=== PATIENT | male | born 1940 | race Caucasian/White ===

== ENCOUNTER 2017-02-04 15:14 | Emergency (ER) | payer MEDICARE, BC ==
--- NOTE | 2017-02-04 15:58 | UC ---
Respiratory Complaint HPI - HPI Summary HPI Summary: 77 year old male presents with complains of cough and chest congestion. - History of Current Complaint Stated Complaint: COUGH,IRAIDA Time Seen by Provider: 02/04/17 15:58 Hx Obtained From: Patient Onset/Duration: Sudden Onset Severity Initially: Moderate Severity Currently: Moderate Character: Cough: Productive - Allergies/Home Medications Allergies/Adverse Reactions: Allergies Allergy/AdvReac Type Severity Reaction Status Date / Time Penicillins Allergy Severe Rash Verified 02/04/17 16:05 PMH/Surg Hx/FS Hx/Imm Hx Previously Healthy: Yes - Surgical History Surgical History: Yes Surgery Procedure, Year, and Place: 1987- knee surgery. 2005- prostate cancer surgery. hydrocele - Social History Alcohol Use: Rare Substance Use Type: None Smoking Status (MU): Former Smoker When Did the Patient Quit Smoking/Using Tobacco: 48 YRS AGO - Immunization History Most Recent Influenza Vaccination: Current for Review of Systems Constitutional: Negative Skin: Negative Eyes: Negative ENT: Sore Throat, Nasal Discharge, Sinus Congestion, Sinus Pain/Tenderness Respiratory: Shortness Of Breath, Cough Cardiovascular: Negative Gastrointestinal: Negative Genitourinary: Negative Motor: Negative Neurovascular: Negative Musculoskeletal: Negative Neurological: Negative Psychological: Negative All Other Systems Reviewed And Are Negative: Yes Physical Exam Triage Information Reviewed: Yes Vital Signs Reviewed: Yes Eye Exam: Normal ENT: Positive: Nasal congestion, Nasal drainage, Sinus tenderness Dental Exam: Normal Neck exam: Normal Neck: Positive: 1 Respiratory Exam: Normal Respiratory: Positive: Respiratory distress Cardiovascular Exam: Normal Abdominal Exam: Normal Musculoskeletal Exam: Normal Neurological Exam: Normal Psychological Exam: Normal Skin Exam: Normal Respiratory Course/Dx - Differential Dx/Diagnosis Provider Diagnoses: allergic rhinitis. cough Discharge - Discharge Plan Condition: Stable Disposition: HOME Prescriptions: Azithromyxin NINO (NF) [Z-Nino (Zithromax) 250 mg tabs #6] 2 tab PO .TODAY, THEN 1 DAILY #6 tab Guaifenesin-Codeine [Cheratussin AC] 1 teasp PO BEDTIME PRN #120 ml MDD 5 ML PRN Reason: Cough LoraTADine TAB(NF) [Claritin 10 MG TAB(NF)] 10 mg PO DAILY #30 tab Patient Education Materials: Allergic Rhinitis (ED) Referrals: Mir Patel DO [Primary Care Provider] -
[2017-02-04 16:05] VITALS: BP 121/67
== END 2017-02-04 16:20 | disposition home or self-care (01) ==
LOC: UCCORT 15:14
DX: J30.9 Allergic rhinitis, unspecified (principal); R05 Cough; Z87.891 Personal history of nicotine dependence
CPT/HCPCS: 99212; G0463

== ENCOUNTER 2017-03-10 15:22 | Emergency (ER) | payer MEDICARE, BC ==
[2017-03-10 15:53] VITALS: BP 141/75
--- OUTSIDE RECORDS SUMMARY | 2017-03-10 15:53 | XMS REPORT ---
:1940 External Reference #:[id number] Author Organization [facility] Address [address] [place] [id number] Phone [phone] Care Team Providers Name Role Phone Mir Patel D.O. 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 Primary Care Physician Unavailable Payers Type Date Identification Numbers Payment Provider Subscriber Medicare Primary Effective: Policy Number: Medicare Juan Carlos Delcid 2012 [id number] PayID: [id number] [address] [place] [address] Medigap Part B Effective: 2011 Policy Number: [facility] Juan Carlos Delcid [id number] PayID: [id number] [address] [address] [place] [address] Medigap Part B Effective: 2009 Policy Number: [facility] ALEX Delcid [id number] Expires: 2011 PayID: [id number] [address] [address] [place] [address] Problems Date Description Provider Status Onset: 06/05/2011 Microscopic hematuria Lorena Carrillo M.D. Active Onset: 06/05/2011 Malignant tumor of prostate Leonarda Rios NP/PA Active Onset: 06/05/2011 [place] hematuria Leonarda Rios NP/PA Active Onset: 06/05/2011 Luis Alfredo Watson M.D. 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 Cigarette Use 02/24/2016 Former Cigarette Smoker quit 1968 ETOH Use Occasionally consumes wine 1-2 glasses a month Allergies, Adverse Reactions, Alerts Date Description Reaction Status Severity Comments 07/03/2010 Penicillin Urticaria active Medications Medication Date Status Form Strength Qnty SIG Indications Ordering Provider Aspirin Low Dose Active Tablets 81mg daily Unknown 0 Pravastatin Active Tablets 20mg Unknown Sodium 0 No Active Hx Unknown Medications 2 - 4 Simvastatin Hx Tablets 20mg Unknown 0 - 8 Vital Signs Date Vital Result Comment 03/08/2017 Height 70 inches 5'10" Weight 185.00 lb Weight in kg's 83.916 BMI (Body Mass Index) 26.5 kg/m2 BP Systolic 176 mmHg BP Diastolic 100 mmHg Heart Rate 65 /min 08/31/2016 Height 70 inches 5'10" Weight 185.00 lb Weight in kg's 83.916 BMI (Body Mass Index) 26.5 kg/m2 BP Systolic 158 mmHg BP Diastolic 95 mmHg Heart Rate 60 /min Respiratory Rate 18 /min Body Temperature 97.7 F 09/02/2015 Height 70 inches 5'10" Weight 174.00 lb Weight in kg's 78.926 BMI (Body Mass Index) 25.0 kg/m2 BP Systolic 104 mmHg right wrist audio BP Diastolic 71 mmHg right wrist audio Heart Rate 81 /min Body Temperature 98.1 F 05/17/2014 Height 70 inches 5'10" Weight 191.00 lb Weight in kg's 86.638 BMI (Body Mass Index) 27.4 kg/m2 BP Systolic 132 mmHg left arm manual cuff BP Diastolic 84 mmHg left arm manual cuff Body Temperature 97.6 F 06/01/2013 Height 70 inches 5'10" Weight 193.00 lb Weight in kg's 87.545 BMI (Body Mass Index) 27.7 kg/m2 BP Systolic 138 mmHg left wrist audio BP Diastolic 62 mmHg left wrist audio Heart Rate 70 /min Body Temperature 97.5 F 06/09/2012 Height 71 inches 5'11" Weight 195.00 lb Weight in kg's 88.452 BMI (Body Mass Index) 27.2 kg/m2 BP Systolic 161 mmHg right BP Diastolic 81 mmHg right Heart Rate 78 /min Body Temperature 98.4 F 06/11/2011 Height 70 inches 5'10" Weight 193.00 lb Weight in kg's 87.545 BMI (Body Mass Index) 27.7 kg/m2 BP Systolic 132 mmHg left wrist BP Diastolic 78 mmHg left wrist Heart Rate 68 /min Body Temperature 97.5 F 12/19/2010 BP Systolic 144 mmHg right wrist BP Diastolic 83 mmHg right wrist Heart Rate 73 /min Body Temperature 98.0 F 09/24/2010 BP Systolic 152 mmHg left wrist BP Diastolic 91 mmHg left wrist Heart Rate 64 /min Body Temperature 98.2 F 09/10/2010 Body Temperature 98.1 F 07/29/2010 BP Systolic 156 mmHg BP Diastolic 86 mmHg Heart Rate 72 /min Body Temperature 97.6 F Results Test Date Test Result H/L Range Note Laboratory test finding 03/08/2017 Urine Cytology <pending> 230 Ua Routine 03/08/2017 Ua Glucose Negative Ua Protein Negative Ua Nitrite Negative Ua Leuko Negative Ua Blood 1+ Ua Color Yellow Ua Ketones Negative Ua Clarity Clear Ua Specific [place] 1.025 1.003-1.030 Ua PH 5.5 5.0-7.5 Ua Bilirubin Negative Ua Urobilinogen 0.2 E.U./dL 0.0-1.0 Laboratory test finding 03/01/2017 Total Psa Only <0.04 ng/mL 0.00- 4.00 Laboratory test finding 08/26/2016 Total Psa Only <0.04 ng/mL 0.000- 4.000 230 Ua Routine 02/24/2016 Ua Glucose Negative Ua Protein Negative Ua Nitrite Negative Ua Leuko Negative Ua Blood Trace-lysed Ua Color yellow Ua Ketones Negative Ua Clarity clear Ua Specifici [place] >=1.030 1.003-1.030 Ua PH 5.5 5.0-7.5 Ua Bilirubin Negative Ua Urobilinogen 0.2 E.U./dL 0.0-1.0 Laboratory test finding 10/28/2015 Total Psa Only <0.04 ng/mL 0.00- 4.00 Testosterone 431.73 ng/dL 300.00-1000.00 230 Ua Routine 09/02/2015 Ua Glucose Negative Ua Protein Negative Ua Nitrite Negative Ua Leuko Negative Ua Blood 1+ Ua Color yellow Ua Ketones Negative Ua Clarity clear Ua Specifici [place] 1.025 1.003-1.030 Ua PH 5.0 5.0-7.5 Ua Bilirubin Negative Ua Urobilinogen 0.2 E.U./dL 0.0-1.0 230 Ua Routine 05/02/2015 Ua Glucose Negative Ua Protein Negative Ua Nitrite Negative Ua Leuko Negative Ua Blood Trace-intact Ua Color yellow Ua Ketones Negative Ua Clarity clear Ua Specifici [place] 1.025 1.003-1.030 Ua PH 5.5 5.0-7.5 Ua Bilirubin Negative Ua Urobilinogen 0.2 E.U./dL 0.0-1.0 Urine Microscopy 05/02/2015 Urine WBC NEG /HPF 0 - 5 Urine RBC 0-2 /HPF 0-2 Bacteria NEG /HPF Neg Crystals NEG /HPF Neg Epithelial Cells NEG /HPF Neg Sperm NEG /HPF Neg Yeast NEG /HPF Neg Laboratory test finding 04/26/2015 Total Psa Only <0.04 ng/mL 0.00- 4.00 230 Ua Routine 03/25/2015 Ua Glucose Negative Ua Protein Negative Ua Nitrite Negative Ua Leuko Negative Ua Blood Negative Ua Color yellow Ua Ketones Negative Ua Clarity clear Ua Specific [place] >=1.030 1.003-1.030 Ua PH 5.5 5.0-7.5 Ua Bilirubin Negative Ua Urobilinogen 0.2 E.U./dL 0.0-1.0 230 Ua Routine 01/22/2015 Ua Glucose Negative Ua Protein Negative Ua Nitrite Negative Ua Leuko Negative Ua Blood Trace-intact Ua Color yellow Ua Ketones Negative Ua Clarity clear Ua Specific [place] 1.025 1.003-1.030 Ua PH 5.5 5.0-7.5 Ua Bilirubin Negative Ua Urobilinogen 0.2 E.U./dL 0.0-1.0 Laboratory test finding 01/22/2015 Beta HCG Tumor Marker <1 0-3 CBC W/O Diff 01/22/2015 Hemoglobin 14.9 12.8-17 Hematocrit 44.6 38-48 Laboratory test finding 01/22/2015 Bill Fetoprotein Tumor Marker 2.2 0.0- 8.3 Urine Microscopy 11/13/2014 Urine WBC NEG /HPF 0 - 5 Urine RBC 0-2 /HPF 0-2 Bacteria NEG /HPF Neg Crystals NEG /HPF Neg Epithelial Cells RARE /HPF Neg Sperm NEG /HPF Neg Yeast NEG /HPF Neg #Ua Routine 11/13/2014 Ua Glucose Negative Ua Protein Negative Ua Nitrite Negative Ua Leuko Negative Ua Blood Negative Ua Color yellow Ua Ketones Negative Ua Clarity clear Ua Specific [place] 1.015 1.003-1.030 Ua PH 6.0 5.0-7.5 Ua Bilirubin Negative Ua Urobilinogen 0.2 E.U./dL 0.0-1.0 Laboratory test finding 11/07/2014 Total Psa Only <0.04 ng/mL 0.00- 4.00 Testosterone 443.41 ng/dL 300.00-1000.00 Urine Microscopy 05/17/2014 Urine WBC 0-2 /HPF 0 - 5 Urine RBC 0-2 /HPF 0-2 Bacteria RARE /HPF Neg Crystals AMORPH 1+ /HPF Neg Epithelial Cells 1+ /HPF Neg Sperm NEG /HPF Neg Yeast NEG /HPF Neg #Ua Routine 05/14/2014 Ua Glucose Negative Ua Protein Negative Ua Nitrite Negative Ua Leuko Negative Ua Blood 1+ Ua Color yellow Ua Ketones Negative Ua Clarity clear Ua Specific [place] 1.025 1.003-1.030 Ua PH 5.5 5.0-7.5 Ua Bilirubin Negative Ua Urobilinogen 0.2 E.U./dL 0.0-1.0 Laboratory test finding 05/14/2014 Total Psa Only <0.04 ng/mL 0.00- 4.00 Urine Microscopy 11/16/2013 Urine WBC 0-2 /HPF 0 - 5 Urine RBC 0-2 /HPF 0-2 Bacteria 2+ /HPF Neg Crystals amorph, 4+ /HPF Neg Epithelial Cells RARE /HPF Neg Sperm NEG /HPF Neg Yeast NEG /HPF Neg #Ua Routine 11/16/2013 Ua Glucose Negative Ua Protein Negative Ua Nitrite Negative Ua Leuko Negative Ua Blood Trace-lysed Ua Color yellow Ua Ketones Negative Ua Clarity clear Ua Specific [place] 1.025 1.003-1.030 Ua PH 6.0 5.0-7.5 Ua Bilirubin Negative Ua Urobilinogen 0.2 E.U./dL 0.0-1.0 Laboratory test finding 11/13/2013 Total Psa Only <0.04 ng/mL 0.00- 4.00 Testosterone 393.30 ng/dL 300.00-1000.00 Urine Microscopic 05/29/2013 Urine WBC 0-2 /HPF 0 - 5 Urine RBC 0-2 /HPF 0-5 Bacteria RARE /HPF Neg Crystals AMORPH 3+ /HPF Neg Epithelial Cells NEG /HPF Neg Sperm NEG /HPF Neg Yeast NEG /HPF Neg #Ua Routine 05/29/2013 Ua Glucose Negative Ua Protein Negative Ua Nitrite Negative Ua Leuko Negative Ua Blood 1+ Ua Color GOLD Ua Ketones Negative Ua Clarity CLEAR Ua Specific [place] 1.025 1.003-1.030 Ua PH 5.5 5.0-7.5 Ua Bilirubin Negative Ua Urobilinogen 0.2 E.U./dL 0.2-1 Laboratory test finding 05/29/2013 Total Psa Only <0.04 ng/mL 0.00- 4.00 Laboratory test finding 12/08/2012 Total PSA <0.04 ng/mL 0.00-4.00 Testosterone 378.43 ng/dL 300.00-1000.00 #Ua Routine 06/09/2012 Ua Glucose Negative Ua Protein Negative Ua Nitrite Negative Ua Leuko Negative Ua Blood Trace-lysed Ua Color Not Entered Ua Ketones Negative Ua Clarity Not Entered Ua Specific [place] >=1.030 Ua PH 5.5 Ua Bilirubin Negative Ua Urobilinogen 0.2 E.U./dL Laboratory test finding 06/09/2012 PSA Total Serum 0.01 0.0-4.0 Laboratory test finding 12/15/2011 Urine Cytology Void X (Amp/CBL) #Ua Routine 12/15/2011 Ua Glucose Negative Ua Protein Negative Ua Nitrite Negative Ua Leuko Negative Ua Blood Trace-lysed Ua Color Not Entered Ua Ketones Negative Ua Clarity Not Entered Ua Specific [place] 1.020 Ua PH 5.5 Ua Bilirubin Negative Ua Urobilinogen 0.2 E.U./dL #Ua Routine 12/10/2011 Ua Glucose Negative Ua Protein Negative Ua Nitrite Negative Ua Leuko Negative Ua Blood Trace-lysed Ua Color Not Entered Ua Ketones Negative Ua Clarity Not Entered Ua Specific [place] 1.025 Ua PH 5.5 Ua Bilirubin Negative Ua Urobilinogen 0.2 E.U./dL Laboratory test finding 12/10/2011 Total PSA <0.04 ng/mL 0.00-4.00 Testosterone 254.00 ng/dL 199.00-1586.00 #Ua Routine 06/08/2011 Ua Glucose Negative Ua Protein Negative Ua Nitrite Negative Ua Leuko Negative Ua Blood Negative Ua Color Not Entered Ua Ketones Negative Ua Clarity Not Entered Ua Specific [place] 1.025 Ua PH 5.5 Ua Bilirubin Negative Ua Urobilinogen 0.2 E.U./dL Laboratory test finding 06/08/2011 Total PSA < 0.04 ng/mL 0.00-4.00 Laboratory test finding 12/19/2010 Urine Cytology Void X (Amp/CBL) #Ua Routine 12/19/2010 Ua Glucose Negative Ua Protein Negative Ua Nitrite Negative Ua Leuko Negative Ua Blood 2+ Ua Color Not Entered Ua Ketones Negative Ua Clarity Not Entered Ua Specific [place] 1.025 Ua PH 5.5 Ua Bilirubin Negative Ua Urobilinogen 0.2 E.U./dL Laboratory test finding 12/10/2010 Total PSA < 0.04 ng/mL 0.00-4.00 Testosterone 307.00 ng/dL 225.00-972.00 #Ua Routine 09/24/2010 Ua Glucose Negative Ua Prot/Creat Normal Ua Protein Negative Ua Nitrite Negative Ua Leuko Negative Ua Blood Negative Ua Color Not Entered Ua Ketones Negative Ua Clarity Not Entered Ua Specific [place] 1.020 Ua PH 5.0 Ua Creatinine 200 mg/dL BUN + Creatinine 09/10/2010 BUN - Urea Nitrogen 15 5-23 Creatinine 0.9 0.5-1.4 #Ua Routine 07/29/2010 Ua Glucose Negative Ua Prot/Creat Normal Ua Protein Negative Ua Nitrite Negative Ua Leuko Negative Ua Blood Trace-lysed Ua Color Not Entered Ua Ketones Negative Ua Clarity Not Entered Ua Specific [place] 1.020 Ua PH 5.5 Ua Creatinine 200 mg/dL Laboratory test finding 06/12/2010 Total PSA < 0.04 ng/mL 0.00-4.00 Laboratory test finding 06/04/2010 Total PSA 0.82 ng/mL 0.00-4.00 #Ua Routine 06/04/2010 Ua Glucose Negative Ua Prot/Creat Normal Ua Protein Negative Ua Nitrite Negative Ua Leuko Negative Ua Blood Trace-intact Ua Color Not Entered Ua Ketones Negative Ua Clarity Not Entered Ua Specific [place] 1.025 Ua PH 5.5 Ua Creatinine 300 mg/dL Laboratory test finding 12/02/2009 PSA Total < 0.07 0.07-4.0 Laboratory test finding 06/19/2009 PSA Total < 0.07 0.07-4.0 Laboratory test finding 12/13/2008 PSA Total 0.09 0.07-4.0 Laboratory test finding 06/18/2008 PSA Total < 0.07 0.07-4.0 Laboratory test finding 12/28/2007 PSA Total < 0.07 0.07-4.0 Laboratory test finding 06/22/2007 PSA Total < 0.07 0.07-4.0 Laboratory test finding 12/13/2006 PSA Total < 0.07 0.07-4.0 Laboratory test finding 06/16/2006 PSA Total < 0.07 0.07-4.0 Laboratory test finding 12/09/2005 PSA Total < 0.07 0.07-4.0 Laboratory test finding 06/17/2005 PSA Total < 0.07 0.07-4.0 Laboratory test finding 06/18/2004 PSA Total 3.56 0-4.0 Laboratory test finding 04/16/2004 PSA Total 5.02 High 0-4.0 Procedures Date CPT Code Description Status 03/01/2017 51964 Genitalia; Ultrasound, Scrotum And Contents - Tech Comp Completed 08/31/2016 08356 Genitalia; Ultrasound, Scrotum And Contents - Tech Comp Completed 02/24/2016 62599 Genitalia; Ultrasound, Scrotum And Contents Completed 09/02/2015 41781 Genitalia; Ultrasound, Scrotum And Contents Completed 03/25/2015 83486 Genitalia; Ultrasound, Scrotum And Contents Completed 01/21/2015 37903 Genitalia; Ultrasound, Scrotum And Contents Completed 12/21/2011 34239 Ultrasound Retro Renal Real Time With Image Limited Completed Global 09/17/2010 38907 Excision Of Hydrocele; Unilateral - Hosp Completed 09/17/2010 91106 Excision Of Spermatocele, W/Wo Epididymectomy - Hosp Completed Encounters Type Date Location Provider CPT E/M Dx Office Visit 03/08/2017 9:00a [facility]Dillan De Paz, 98502 Z85.46 Urology P.A. R31.9 N52.31 N43.42 Office Visit 08/31/2016 10:45a [facility] 80570 Z85.46 R., P.A. N52.31 N43.42 Office Visit 02/24/2016 12:00p [facility] Luis Alfredo Zambrano, [address]39[address] Z85.46 Thierry D40.11 N43.42 N52.31 Office Visit 09/02/2015 1:10p [facility] KenyaLuis Alfredo, 49956 Z85.46 M.D. D40.11 N43.42 N52.31 Office Visit 05/02/2015 2:30p [facility] Leonarda Rios, MANAGER ASSESSMENT/[place] [address] Z85.46 R31.1 K40.21 Office Visit 03/25/2015 12:50p [facility] Luis Alfredo Zambrano, 16225 Z85.46 M.D. K40.21 D40.11 Office Visit 01/22/2015 8:30a [facility] Luis Alfredo Zambrano, 36856 N43.41 M.D. Z85.46 K40.21 D40.11 Office Visit 2015 3:10p [facility] Luis Alfredo Zambrano, 87071 Z85.46 M.D. K40.21 N43.41 Office Visit 11/13/2014 10:10a [facility] Luis Alfredo Zambrano, 98452 Z85.46 M.D. N52.31 R31.1 Office Visit 05/17/2014 9:00a [facility] Leonarda Rios, MANAGER ASSESSMENT/[place] [address] 185 607.84 599.72 Office Visit 11/16/2013 9:30a [facility] Luis Alfredo Zambrano, [address]1465 185 M.D. 607.84 599.72 Office Visit 06/01/2013 10:50a [facility] Luis Alfredo Zambrano, 26662 185 M.D. 607.84 Office Visit 12/13/2012 8:20a [facility] Luis Alfredo Zambrano, 10530 185 M.D. 603.9 607.84 Office Visit 06/14/2012 8:10a [facility] Luis Alfredo Zambrano, [address]14[address] 185 M.D. Office Visit 12/15/2011 8:00a [facility] Luis Alfredo Zambrano, 16851 185 M.D. 599.72 Office Visit 06/11/2011 9:50a [facility] Luis Alfredo Zambrano, 79172 185 M.D. Office Visit 12/19/2010 8:30a [facility] BlancaLeonarda MANAGER ASSESSMENT/[place] [address] 185 599.71 Office Visit 09/10/2010 9:45a [facility] Leonarda Rios, MANAGER [place] [address] 603.9 Office Visit 07/29/2010 8:50a [facility] Luis Alfredo Zambrano, 16862 185 M.D. Office Visit 06/12/2010 8:30a [facility] Luis Alfredo Zambrano, 39120 185 M.D. Plan of Care Future Appointment(s):09/06/2017 9:30 am - Dillan Rodriguez, P.AIrineo at [facility] Haveoce3708/31/2017 9:15 am - Monty Vee at [facility] [id number] - Dillan Rodriguez, P.A.Z85.46 Personal history of malignant neoplasm of prostateNew Labs:PSA TotalComments:Today's PSA is undetectable less than 0.04. He has a son 42 and 50 getting prostate cancer screening. Call for his [id number] Hematuria, unspecifiedComments:Asymptomatic microscopic hematuria. It's been over 4 years since the last cytology in one is sent today with his history of [id number] Erectile dysfunction following radical prostatectomyComments:Reviewed penile rehabilitation use the vacuum erection device. He is currently doing rehabilitation sessions. We reviewed the use of PDE 5 inhibitors in conjunction with his rehabilitation. Sildenafil 20 mg as called the pharmacy. He has no contra indications to its use.N43.42 Spermatocele of epididymis, multipleComments:Stable and not bothersome. Reviewed scrotal elevation and nonsteroidal anti-inflammatory use for mild symptoms. Should he have any persistent or worsening of his symptoms of it starts feeling hot or tender he should contact the office f~B_~U_or a short course of antibiotics~u_~b_
--- OUTSIDE RECORDS SUMMARY | 2017-03-10 15:54 | XMS REPORT ---
:1940 External Reference #:[id number] Author Organization [facility] Address [address] [address] Phone [phone] Care Team Providers Name Role Phone Mir Patel DO Care Team Information [employer] Unavailable Payers Type Date Identification Numbers Payment Provider Subscriber Medicare Primary Effective: Policy Number: Medicare Juan Carlos Delcid 2012 [id number] PayID: [id number] [address] [place] [address] [facility] Part B Effective: Policy Number: BCBS Commercial Juan Carlos Delcid 2012 [id number] PayID: [id number] [address] [address] [place] [address] Problems Date Description Provider Status Onset: 05/25/2013 Benign essential hypertension Mir Patel DO Active Onset: 07/05/2007 Mixed hyperlipidemia Michael Goss MD Active Onset: 12/18/2005 Acute pancreatitis Michael Goss MD Active Onset: 03/10/2005 Elevated blood-pressure reading without Michael Goss MD Active diagnosis of hypertension Onset: 12/17/2004 History of malignant neoplasm of prostate Michael Goss MD Active Onset: 06/04/2014 Pure hypercholesterolemia Active Onset: 06/05/2014 Type 2 diabetes mellitus Mir Patel DO Active Social History Type Date Description Comments Marital Status Lives With 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 Allergies, Adverse Reactions, Alerts Date Description Reaction Status Severity Comments 12/17/2004 Amoxicillin active 02/12/2017 Penicillin active Medications Medication Date Status Form Strength Qnty SIG Indications Ordering Provider Pravastatin 02/17/19 Active Tablets 20mg 30tabs 1 po Patel, Sodium 14 qd Mir, DO Aspirin Adult Active Tablets DR 81mg 1 po Unknown Low Strength 00 qd Immunizations CPT Code Status Date Vaccine Lot # [id number] Given 12/21/2016 Influenza Vac, 3 Yrs & Older, Quadrivalent, Split, [place] Use [address] Given 08/13/2016 Prevnar 13 Pneumococal Conjugate Vaccine [id number] Given 11/23/2014 Fluzone Highdose Age 65 And Over Preservative & Antibiotic Free 35035 Given 10/31/2012 Afluria Or Fluvirin Flu Vac Intramuscular 13741 Given 07/05/2008 Pneumococcal 23 Immunization Adult Or Immunosuppressed Patient 36341 Given 12/17/2004 Afluria Or Fluvirin Flu Vac Intramuscular 03142 Given 09/08/2000 Immunization Td 7 Yrs Or Older Vital Signs Date Vital Result Comment 02/12/2017 Body Temperature 96.9 F Weight 189.00 lb Heart Rate 108 /min BP Systolic 142 mmHg BP Diastolic 80 mmHg Respiratory Rate 14 /min Height 69.5 inches 5'9.50" (01/2016) O2 % BldC Oximetry 98 % Room Air BMI (Body Mass Index) 27.5 kg/m2 08/13/2016 Weight 185.00 lb Heart Rate 66 /min BP Systolic 160 mmHg BP Diastolic 90 mmHg Respiratory Rate 18 /min Height 69.5 inches 5'9.50" (01/2016) BMI (Body Mass Index) 26.9 kg/m2 02/05/2016 Weight 187.00 lb Heart Rate 72 /min BP Systolic 148 mmHg BP Diastolic 88 mmHg BP Systolic Recheck 150 mmHg BP Diastolic Recheck 90 mmHg Respiratory Rate 18 /min Height 69.5 inches 5'9.50" (01/2016) BMI (Body Mass Index) 27.2 kg/m2 08/01/2015 Weight 175.00 lb Heart Rate 68 /min BP Systolic 140 mmHg BP Diastolic 80 mmHg Respiratory Rate 18 /min Height 69.5 inches 5'9.50" BMI (Body Mass Index) 25.5 kg/m2 01/18/2015 Weight 185.00 lb Heart Rate 60 /min BP Systolic 140 mmHg BP Diastolic 80 mmHg Respiratory Rate 18 /min Height 69.5 inches 5'9.50" BMI (Body Mass Index) 26.9 kg/m2 09/12/2014 Weight 187.00 lb Heart Rate 64 /min BP Systolic 138 mmHg BP Diastolic 76 mmHg Respiratory Rate 18 /min Height 69.5 inches 5'9.50" BMI (Body Mass Index) 27.2 kg/m2 06/05/2014 Weight 193.00 lb Heart Rate 72 /min BP Systolic 150 mmHg BP Diastolic 80 mmHg Respiratory Rate 18 /min Height 69.5 inches 5'9.50" BMI (Body Mass Index) 28.1 kg/m2 11/27/2013 BP Systolic 140 mmHg BP Diastolic 86 mmHg 11/27/2013 Weight 195.00 lb Heart Rate 70 /min BP Systolic 148 mmHg BP Diastolic 88 mmHg Respiratory Rate 18 /min Height 69.5 inches 5'9.50" (10/2012) 05/25/2013 Weight 195.00 lb Heart Rate 72 /min BP Systolic 142 mmHg BP Diastolic 80 mmHg Respiratory Rate 18 /min Height 69.5 inches 5'9.50" (10/2012) 02/17/2013 Weight 194.00 lb Heart Rate 62 /min BP Systolic 142 mmHg BP Diastolic 84 mmHg Respiratory Rate 18 /min Height 69.5 inches 5'9.50" (10/2012) 10/31/2012 BP Systolic 156 mmHg BP Diastolic 94 mmHg 10/31/2012 Weight 194.00 lb Heart Rate 72 /min BP Systolic 158 mmHg BP Diastolic 90 mmHg Respiratory Rate 18 /min Height 69.5 inches 5'9.50" (10/2012) 08/25/2011 Weight 195.00 lb Heart Rate 80 /min BP Systolic 132 mmHg BP Diastolic 90 mmHg Respiratory Rate 20 /min Height 69 inches 5'9" 08/25/2010 Weight 195.00 lb Heart Rate 72 /min BP Systolic 142 mmHg BP Diastolic 82 mmHg Respiratory Rate 20 /min Height 69 inches 5'9" 06/16/2010 Weight 196.00 lb Heart Rate 66 /min BP Systolic 130 mmHg BP Diastolic 74 mmHg Height 70 inches 5'10" 05/05/2010 Weight 197.00 lb Heart Rate 60 /min BP Systolic 150 mmHg BP Diastolic 80 mmHg Height 70 inches 5'10" 08/12/2009 Weight 194.00 lb BP Systolic 170 mmHg BP Diastolic 84 mmHg 07/05/2008 Weight 193.00 lb Heart Rate 72 /min BP Systolic 122 mmHg LEFT BP Diastolic 80 mmHg LEFT Respiratory Rate 15 /min 07/05/2007 Weight 188.00 lb Heart Rate 60 /min BP Systolic 130 mmHg BP Diastolic 80 mmHg Height 70 inches 5'10" 03/17/2007 Body Temperature 96.8 F Weight 194.00 lb Up 5 LBS BP Systolic 160 mmHg BP Diastolic 84 mmHg Height 70 inches 5'10" 07/02/2006 Weight 189.00 lb Heart Rate 68 /min BP Systolic 144 mmHg BP Diastolic 80 mmHg Respiratory Rate 18 /min Height 70 inches 5'10" 06/26/2006 Body Temperature 97.3 F Weight 188.00 lb Heart Rate 76 /min BP Systolic 140 mmHg BP Diastolic 88 mmHg Respiratory Rate 18 /min Height 70 inches 5'10" 06/03/2006 Body Temperature 97.1 F Weight 192.00 lb Heart Rate 67 /min BP Systolic 146 mmHg BP Diastolic 80 mmHg Respiratory Rate 18 /min Height 70 inches 5'10" 12/18/2005 Weight 182.00 lb Down 9 LBS BP Systolic 120 mmHg BP Diastolic 84 mmHg Height 70 inches 5'10" 08/31/2005 Weight 190.00 lb Heart Rate 69 /min BP Systolic 158 mmHg BP Diastolic 94 mmHg Respiratory Rate 16 /min Height 70 inches 5'10" 08/24/2005 Body Temperature 98.2 F Weight 190.00 lb Heart Rate 68 /min BP Systolic 152 mmHg BP Diastolic 78 mmHg Respiratory Rate 16 /min Height 70 inches 5'10" 03/10/2005 Weight 190.00 lb Heart Rate 56 /min BP Systolic 150 mmHg BP Diastolic 80 mmHg Height 70 inches 5'10" 02/17/2005 Weight 192.00 lb Heart Rate 60 /min BP Systolic 132 mmHg BP Diastolic 80 mmHg Height 70 inches 5'10" 01/01/2005 Weight 190.00 lb Heart Rate 60 /min BP Systolic 144 mmHg BP Diastolic 74 mmHg 12/17/2004 Weight 184.00 lb BP Systolic 140 mmHg BP Diastolic 80 mmHg Results Test Date Test Result H/L Range Note Lipid Treatment 02/05/2017 Cholesterol 121 mg/dL 50-199 Triglycerides 72 mg/dL 30-200 HDL 29 mg/dL 29-71 1 Chol/ HDL Ratio 4.2 ratio 4.0-6.7 VLDL 14 mg/dL 2-29 LDL (Calc) 78 mg/dL 20-99 2 Alt 19 U/L 3-42 Ast 20 U/L 8-42 Hemoglobin A1c 02/05/2017 Hemoglobin A1c 6.6 % High 4.1-5.9 Estimated Average Glucose Calc 143 mg/dL High 71-140 CBC With Auto Diff 02/05/2017 WBC 3.7 K/uL Low 4.1-11.0 RBC 5.01 M/uL 4.60-6.10 Hemoglobin 16.1 gm/dL 13.5-18.0 Hematocrit 46.7 % 41.0-53.0 MCV 93.2 fL 80.0-97.0 MCH 32.2 pg High 27.0-32.0 MCHC 34.6 g/dL 32.0-36.0 RDW 13.4 % 11.5-14.5 PLT Count 186 K/ul 140-400 MPV 9.0 FL 7.1-10.7 Neutrophil 59.2 % 35.0-75.0 Lymphocyte 24.6 % 16.0-52.0 Monocyte 9.9 % 2.0-10.0 Eosinophil 5.6 % High 0.0-5.0 Basophil 0.7 % 0.0-4.0 Abs Neutrophils 2.2 K/uL 2.1-8.0 Abs Lymphocytes 0.9 K/uL 0.8-5.5 Abs Monocytes 0.4 K/uL 0.1-1.0 Abs Eosinophils 0.2 K/uL 0.0-0.5 Abs Basophils 0.0 K/uL 0.0-0.3 Basic (BMP) 02/05/2017 Sodium 141 mmol/L 135-146 3 Potassium 3.9 mmol/L 3.5-5.2 Chloride# 105 mmol/L 97-110 4 Carbon Dioxide 25 mmol/L 24-34 Glucose 131 mg/dL High 70-105 Creatinine 1.1 mg/dL 0.5-1.4 Calcium 9.0 mg/dL 8.5-10.2 Non Ashlyn Egfr >60 >60 5 Ashlyn Egfr >60 >60 6 Anion Gap 11 mmol/L 7-16 7 BUN 21 mg/dL 6-26 Laboratory test finding 02/05/2017 TSH 1.45 uIU/mL 0.35-4.94 Hemoglobin A1c 08/10/2016 Hemoglobin A1c 6.2 % High 4.1-5.9 Estimated Average Glucose Calc 131 71-140 CBC With Auto Diff 08/10/2016 WBC 5.5 K/uL 4.1-11.0 RBC 4.86 M/uL 4.60-6.10 Hemoglobin 15.2 gm/dL 13.5-18.0 Hematocrit 44.8 % 41.0-53.0 MCV 92.1 fL 80.0-97.0 MCH 31.3 pg 27.0-32.0 MCHC 34.0 g/dL 32.0-36.0 RDW 13.1 % 11.5-14.5 PLT Count 213 K/ul 140-400 Neutrophil 62.9 % 35.0-75.0 Lymphocyte 24.3 % 16.0-52.0 Monocyte 9.4 % 2.0-10.0 Eosinophil 2.7 % 0.0-5.0 Basophil 0.7 % 0.0-4.0 Abs Neutrophils 3.5 K/uL 2.1-8.0 Abs Lymphocytes 1.3 K/uL 0.8-5.5 Abs Monocytes 0.5 K/uL 0.1-1.0 Abs Eosinophils 0.1 K/uL 0.0-0.5 Abs Basophils 0.0 K/uL 0.0-0.3 Basic (BMP) 08/10/2016 Sodium 142 mmol/L 135-146 8 Potassium 4.0 mmol/L 3.5-5.2 Chloride# 107 mmol/L 97-110 9 Carbon Dioxide 26 mmol/L 24-34 Glucose 127 mg/dL High 70-105 BUN 20 mg/dL 6- Creatinine 1.0 mg/dL 0.5-1.4 Calcium 9.3 mg/dL 8.5-10.2 Non Ashlyn Egfr >60 >60 10 Ashlyn Egfr >60 >60 11 Anion Gap 13 mmol/L 7-16 12 Laboratory test finding 08/10/2016 TSH 1.18 uIU/mL 0.35-4.94 Lipid Treatment 08/10/2016 Cholesterol 143 mg/dL 50-199 Triglycerides 96 mg/dL 30-200 HDL 34 mg/dL 29-71 13 Chol/ HDL Ratio 4.2 ratio 4.0-6.7 VLDL 19 mg/dL 2-29 LDL (Calc) 89 mg/dL 20-99 14 Alt 13 U/L 3-42 Ast 14 U/L 8- Lipid Treatment 01/31/2016 Cholesterol 137 mg/dL 50-199 Triglycerides 103 mg/dL 30-200 HDL 34 mg/dL 29-71 15 Chol/ HDL Ratio 4.0 ratio 4.0-6.7 VLDL 21 mg/dL 2-29 LDL (Calc) 82 mg/dL 20-99 16 Alt 14 U/L 3-42 Ast 16 U/L 8- Laboratory test finding 01/31/2016 Hemoglobin A1c 6.4 % High 4.1-5.9 CBC With Auto Diff 01/31/2016 WBC 5.5 K/uL 4.1-11.0 RBC 4.91 M/uL 4.60-6.10 Hemoglobin 15.4 gm/dL 13.5-18.0 Hematocrit 45.7 % 41.0-53.0 MCV 93.1 fL 80.0-97.0 MCH 31.3 pg 27.0-32.0 MCHC 33.7 g/dL 32.0-36.0 RDW 13.3 % 11.5-14.5 PLT Count 217 K/ul 140-400 Neutrophil 63.2 % 35.0-75.0 Lymphocyte 25.2 % 16.0-52.0 Monocyte 8.1 % 2.0-10.0 Eosinophil 2.6 % 0.0-5.0 Basophil 0.9 % 0.0-4.0 Abs Neutrophils 3.5 K/uL 2.1-8.0 Abs Lymphocytes 1.4 K/uL 0.8-5.5 Abs Monocytes 0.4 K/uL 0.1-1.0 Abs Eosinophils 0.1 K/uL 0.0-0.5 Abs Basophils 0.1 K/uL 0.0-0.3 Basic (BMP) 01/31/2016 Sodium 140 mmol/L 134-142 Potassium 4.3 mmol/L 3.5-5.2 Chloride 105 mmol/L 97-109 Carbon Dioxide 29 mmol/L 24-34 Glucose 135 mg/dL High 70-105 BUN 15 mg/dL 6-26 Creatinine 0.9 mg/dL 0.5-1.4 Calcium 9.3 mg/dL 8.5-10.2 Anion Gap 10 mmol/L 6-14 Non Ashlyn Egfr >60 >60 17 Ashlyn Egfr >60 >60 18 Laboratory test finding 01/31/2016 TSH 1.15 uIU/mL 0.35-4.94 Laboratory test finding 07/25/2015 Hemoglobin A1c 5.9 % 4.1-5.9 CBC With Auto Diff 07/25/2015 WBC 6.4 K/uL 4.1-11.0 RBC 4.47 M/uL Low 4.60-6.10 Hemoglobin 13.7 gm/dL 13.5-18.0 Hematocrit 40.5 % Low 41.0-53.0 MCV 90.5 fL 80.0-97.0 MCH 30.7 pg 27.0-32.0 MCHC 33.9 g/dL 32.0-36.0 RDW 13.6 % 11.5-14.5 PLT Count 287 K/ul 140-400 Basic (BMP) 07/25/2015 Sodium 137 mmol/L 134-142 Potassium 3.9 mmol/L 3.5-5.2 Chloride 105 mmol/L 97-109 Carbon Dioxide 24 mmol/L 24-34 Glucose 127 mg/dL High 70-105 BUN 19 mg/dL 6- Creatinine 0.9 mg/dL 0.5-1.4 Calcium 9.5 mg/dL 8.5-10.2 Anion Gap 12 mmol/L 6-14 Non Ashlyn Egfr >60 >60 19 Ashlyn Egfr >60 >60 20 Laboratory test finding 07/25/2015 TSH 1.37 uIU/mL 0.35-4.94 Lipid Treatment 07/25/2015 Cholesterol 136 mg/dL 50-199 Triglycerides 111 mg/dL 30-200 HDL 32 mg/dL 21 Chol/ HDL Ratio 4.3 ratio 4.0-6.7 VLDL 22 mg/dL 2-29 LDL (Calc) 82 mg/dL 20-99 22 Alt 11 U/L 3-42 Ast 11 U/L 8- Lipid Treatment 01/14/2015 Cholesterol 138 mg/dL 50-199 Triglycerides 72 mg/dL 30-200 HDL 39 mg/dL 23 Chol/ HDL Ratio 3.5 ratio Low 4.0-6.7 VLDL 14 mg/dL 2-29 LDL (Calc) 85 mg/dL 20-99 24 Alt 15 U/L 3-42 Ast 14 U/L 8-42 Laboratory test finding 01/14/2015 Hemoglobin A1c 6.4 % High 4.1-5.9 CBC With Auto Diff 01/14/2015 WBC 5.8 K/uL 4.1-11.0 RBC 4.72 M/uL 4.60-6.10 Hemoglobin 15.2 gm/dL 13.5-18.0 Hematocrit 44.8 % 41.0-53.0 MCV 94.8 fL 80.0-97.0 MCH 32.2 pg High 27.0-32.0 MCHC 33.9 g/dL 32.0-36.0 RDW 13.4 % 11.5-14.5 PLT Count 194 K/ul 140-400 Neutrophil 67.8 % 35.0-75.0 Lymphocyte 21.6 % 16.0-52.0 Monocyte 8.4 % 2.0-10.0 Eosinophil 1.6 % 0.0-5.0 Basophil 0.6 % 0.0-4.0 Abs Neutrophils 3.9 K/uL 2.1-8.0 Abs Lymphocytes 1.3 K/uL 0.8-5.5 Abmon 0.5 K/uL 0.1-1.0 Abs Eosinophils 0.1 K/uL 0.0-0.5 Abs Basophils 0.0 K/uL 0.0-0.3 Basic (BMP) 01/14/2015 Sodium 138 mmol/L 134-142 Potassium 4.3 mmol/L 3.5-5.2 Chloride 106 mmol/L 97-109 Carbon Dioxide 27 mmol/L 24-34 Glucose 123 mg/dL High 70-105 BUN 19 mg/dL 6- Creatinine 1.0 mg/dL 0.5-1.4 Calcium 9.4 mg/dL 8.5-10.2 Anion Gap 9 mmol/L 6-14 Non Ashlyn Egfr >60 >60 25 Ashlyn Egfr >60 >60 26 Laboratory test finding 01/14/2015 TSH 0.93 uIU/mL 0.35-4.94 Laboratory test finding 09/05/2014 Microalbumin, Random 6.5 ug/ml 0.0- 20.0 Urine Hemoglobin A1c 6.0 % High 4.1-5.9 Laboratory test finding 06/01/2014 Hemoglobin A1c 6.6 % High 4.1-5.9 Basic (BMP) 06/01/2014 Sodium 138 mmol/L 134-142 Potassium 4.6 mmol/L 3.5-5.2 Chloride 105 mmol/L 97-109 Carbon Dioxide 29 mmol/L 24-34 Glucose 122 mg/dL High 70-105 BUN 14 mg/dL 6-26 Creatinine 0.9 mg/dL 0.5-1.4 Calcium 9.4 mg/dL 8.5-10.2 Anion Gap 9 mmol/L 6-14 Non Ashlyn Egfr >60 >60 27 Ashlyn Egfr >60 >60 28 Lipid Treatment 06/01/2014 Cholesterol 151 mg/dL 50-199 Triglycerides 119 mg/dL 30-200 HDL 31 mg/dL 29-71 29 Chol/ HDL Ratio 4.9 ratio 4.0-6.7 VLDL 24 mg/dL 2-29 LDL (Calc) 96 mg/dL 20-99 30 Alt 17 U/L 3-42 Ast 15 U/L 8-42 Laboratory test finding 11/24/2013 % Baso. 1.0 % 0.0-2.0 % Eos. 2.7 % 0.0-4.0 % Lymph 23 % 20-44 % Hand 9.7 % 2.0-10.0 % Aubrey 64 % 50-70 Absolute Baso. 0.1 K/ul 0.0-0.3 Absolute Eos. 0.2 K/ul 0.0-0.5 Absolute Lymph. 1.4 K/ul 0.8-4.8 Absolute Hand. 0.6 K/ul 0.1-1.0 Absolute Aubrey. 3.87 K/ul 2.05-7.63 Alt 22.0 U/L 21.0-72.0 Ast 18.0 U/L 17.0-59.0 BUN 17.0 mg/dL 9.0-21.0 BUN/Creat Ratio 15.5 ratio 12.0-20.0 Calcium 9.6 mg/dL 8.7-10.5 Chloride 107.0 mmol/L 98.0-107.0 Co2 27.0 mmol/L 22.0-30.0 Creatinine-Serum 1.1 mg/dL 0.8-1.5 Glucose 117.0 mg/dL High 75.0-110.0 HCT 46.7 % 37.0-51.0 HGB 15.8 Gm/dl 12.0-16.0 MCH 31.6 pg 26.0-32.0 MCHC 33.9 g/dL 31.0-36.0 MCV 93.2 Fl 80.0-97.0 MPV 9.6 fL 6.0-10.0 PLT 223 K/ul 140-440 Potasium 4.3 mmol/L 3.6-5.0 RBC 5.0 M/ul 4.2-6.3 RDW 11.8 % 11.5-14.5 Sodium 141.0 mmil/L 137.0-145.0 TSH 1.53 uIU/ml 0.50-6.00 WBC 6.1 K/ul 4.1-10.9 eGFR 69.9 Lipid Panel 11/24/2013 Chol/HDL Ratio 4.5 ratio Cholesterol 149.0 mg/dL 50.0-199.0 HDL 33.0 mg/dL 29.0-67.0 LDL, Calculated 93.2 mg/dL 20.0-129.0 Triglycerides 114.0 mg/dL 30.0-249.0 vLDL 22.8 ng/dL Lipid Panel 05/19/2013 Chol/HDL Ratio 4.4 ratio Cholesterol 160.0 mg/dL 50.0-199.0 HDL 36.0 mg/dL 29.0-67.0 LDL, Calculated 103.2 mg/dL 20.0-129.0 Triglycerides 104.0 mg/dL 30.0-249.0 vLDL 20.8 ng/dL Laboratory test finding 05/19/2013 A/G Ratio 1.8 ratio 1.6-2.2 Albumin 4.4 g/dL 3.5-5.0 Alk. Phos. 72.0 U/L 30.0-126.0 Alt 24.0 U/L 21.0-72.0 Anion Gap 12.0 mmol/L 10.0-20.0 Ast 20.0 U/L 17.0-59.0 BUN 20.0 mg/dL 9.0-21.0 BUN/Creat Ratio 20.0 ratio 12.0-20.0 Calcium 9.2 mg/dL 8.7-10.5 Chloride 106.0 mmol/L 98.0-107.0 Co2 24.0 mmol/L 22.0-30.0 Creatinine-Serum 1.0 mg/dL 0.8-1.5 Globulin 2.5 g/dL Low 2.7-4.3 Glucose 122.0 mg/dL High 75.0-110.0 Potasium 4.1 mmol/L 3.6-5.0 Sodium 142.0 mmil/L 137.0-145.0 Total Bilirubin 1.1 mg/dL 0.2-1.3 Total Protein 6.9 g/dL 6.3-8.2 eGFR 77.1 mi/minper1.73 31 Lipid Panel 10/31/2012 Chol/HDL Ratio 5.8 ratio Cholesterol 196.0 mg/dL 50.0-199.0 HDL 34.0 mg/dL 29.0-67.0 LDL, Calculated 135.6 mg/dL High 20.0-129.0 Triglycerides 132.0 mg/dL 30.0-249.0 vLDL 26.4 ng/dL Laboratory test finding 10/31/2012 % Baso. 0.7 % 0.0-2.0 % Eos. 1.4 % 0.0-4.0 % Lymph 26 % 20-44 % Hand 7.8 % 2.0-10.0 % Aubrey 64 % 50-70 A/G Ratio 1.7 ratio 1.6-2.2 Absolute Baso. 0.0 K/ul 0.0-0.3 Absolute Eos. 0.1 K/ul 0.0-0.5 Absolute Lymph. 1.8 K/ul 0.8-4.8 Absolute Hand. 0.5 K/ul 0.1-1.0 Absolute Aubrey. 4.48 K/ul 2.05-7.63 Albumin 4.5 g/dL 3.5-5.0 Alk. Phos. 82.0 U/L 30.0-126.0 Alt 24.0 U/L 21.0-72.0 Anion Gap 9.0 mmol/L Low 10.0-20.0 Ast 21.0 U/L 17.0-59.0 BUN 16.0 mg/dL 9.0-21.0 BUN/Creat Ratio 16.0 ratio 12.0-20.0 Calcium 9.7 mg/dL 8.7-10.5 Chloride 106.0 mmol/L 98.0-107.0 Co2 25.0 mmol/L 22.0-30.0 Creatinine-Serum 1.0 mg/dL 0.8-1.5 Globulin 2.6 g/dL Low 2.7-4.3 Glucose 108.0 mg/dL 75.0-110.0 HCT 48.2 % 37.0-51.0 HGB 15.0 Gm/dl 12.0-16.0 MCH 29.4 pg 26.0-32.0 MCHC 31.2 g/dL 31.0-36.0 MCV 94.4 Fl 80.0-97.0 MPV 8.0 fL 6.0-10.0 PLT 251 K/ul 140-440 Potasium 4.2 mmol/L 3.6-5.0 RBC 5.1 M/ul 4.2-6.3 RDW 12.0 % 11.5-14.5 Sodium 140.0 mmil/L 137.0-145.0 TSH 0.94 uIU/ml 0.50-6.00 Total Bilirubin 1.0 mg/dL 0.2-1.3 Total Protein 7.1 g/dL 6.3-8.2 WBC 7.0 K/ul 4.1-10.9 eGFR 80.8 mi/minper1.73 32 Laboratory test finding 08/25/2011 Absolute Basophils 0.045 K/ul 0.0-0.3 Absolute Eosinophils 0.075 K/ul 0.0-0.5 Absolute Lymphocytes 1.60 K/ul 0.8-4.8 Absolute Monocytes 0.421 K/ul 0.1-1.0 Absolute Neutrophils 3.93 K/ul 2.05-7.63 Anion Gap 12 mmol/L 10-20 BUN 17 mg/dL 9-21 BUN/CR Ratio 17.8 Ratio 12-20 Basophil 0.7 % 0-2 Calcium 9.5 mg/dL 8.7-10.5 Carbon Dioxide 28 mmol/L 22-30 Chloride 102 mmol/L 98-107 Creatinine, Serum 1.0 mg/dL 0.8-1.5 Eosinophil 1.2 % 0-4 Glucose 109 mg/dL 75-110 Hematocrit 49.7 % 37.0-51.0 Hemoglobin 16.6 GM/dl High 12.0-16.0 Lymphocytes 26.3 % 20-44 MCH 30.8 pg 26.0-32.0 MCHC 33.4 g/dL 31.0-36.0 MCV 92 FL 80-97 Monocytes 6.9 % 2-10.0 Neutrophils 64.8 % 50-70 Platelet Count 279 K/ul 140-440 Potassium 4.2 mmol/L 3.6-5.0 RBC 5.40 M/ul 4.2-6.3 RDW 11.7 % 11.5-14.5 Sodium 137 mmol/L 137-145 TSH 0.966 uIU/ml 0.50-6.00 WBC 6.1 K/ul 4.1-10.9 Lipid Panel 08/25/2011 Chol/HDL Ratio 5.6 33 Cholesterol 224 mg/dL High 50-199 HDL Cholesterol 40 mg/dL 29-67 LDL 155 mg/dL High 20-129 Triglycerides 144 mg/dL 30-249 VLDL Cholesterol 29 mg/dL Laboratory test finding 09/17/2010 Spermatocele See Note 34 Laboratory test finding 08/25/2010 Absolute Basophils 0.056 K/ul 0.0-0.3 Absolute Eosinophils 0.103 K/ul 0.0-0.5 Absolute Lymphocytes 1.84 K/ul 0.8-4.8 Absolute Monocytes 0.602 K/ul 0.1-1.0 Absolute Neutrophils 4.89 K/ul 2.05-7.63 Anion Gap 15 mmol/L 10-20 BUN 15 mg/dL 9-21 BUN/CR Ratio 16.9 Ratio 12-20 Basophil 0.7 % 0-2 Calcium 9.5 mg/dL 8.7-10.5 Carbon Dioxide 30 mmol/L 22-30 Chloride 103 mmol/L 98-107 Creatinine, Serum 0.9 mg/dL 0.8-1.5 Eosinophil 1.4 % 0-4 Glucose 103 mg/dL 75-110 Hematocrit 48.0 % 37.0-51.0 Hemoglobin 16.2 GM/dl High 12.0-16.0 Lymphocytes 24.6 % 20-44 MCH 31.4 pg 26.0-32.0 MCHC 33.8 g/dL 31.0-36.0 MCV 93 FL 80-97 Monocytes 8.0 % 2-10.0 Neutrophils 65.3 % 50-70 Platelet Count 237 K/ul 140-440 Potassium 4.2 mmol/L 3.6-5.0 RBC 5.16 M/ul 4.2-6.3 RDW 12.2 % 11.5-14.5 Sodium 143 mmol/L 137-145 WBC 7.5 K/ul 4.1-10.9 Lipid Panel 08/25/2010 Chol/HDL Ratio 5.5 35 Cholesterol 221 mg/dL High 50-199 HDL Cholesterol 40 mg/dL 29-67 LDL 144 mg/dL High 20-129 Triglycerides 185 mg/dL 30-249 VLDL Cholesterol 37 mg/dL Laboratory test finding 06/16/2010 Tick Id See Note 36 Laboratory test finding 02/04/2010 BUN 16 mg/dL 5-23 37 Creatinine 1.0 mg/dL 0.5-1.4 38 Laboratory test finding 08/12/2009 Absolute Basophils 0.056 K/ul 0.0-0.3 39 Absolute Eosinophils 0.076 K/ul 0.0-0.5 39 Absolute Lymphocytes 1.55 K/ul 0.8-4.8 39 Absolute Monocytes 0.429 K/ul 0.1-1.0 39 Absolute Neutrophils 3.12 K/ul 2.05-7.63 39 Anion Gap 14 mmol/L 10-20 39 BUN 15 mg/dL 9-21 39 BUN/CR Ratio 16.5 Ratio 12-20 39 Basophil 1.1 % 0-2 39 Calcium 9.7 mg/dL 8.7-10.5 39 Carbon Dioxide 28 mmol/L 22-30 39 Chloride 104 mmol/L 98-107 39 Creatinine, Serum 0.9 mg/dL 0.8-1.5 39 Eosinophil 1.5 % 0-4 39 Glucose 112 mg/dL High 75-110 39 Hematocrit 44.4 % 37.0-51.0 39 Hemoglobin 15.6 GM/dl 12.0-16.0 39 Lymphocytes 29.6 % 20-44 39 MCH 30.7 pg 26.0-32.0 39 MCHC 35.1 g/dL 31.0-36.0 39 MCV 88 FL 80-97 39 Monocytes 8.2 % 2-10.0 39 Neutrophils 59.7 % 50-70 39 Platelet Count 264 K/ul 140-440 39 Potassium 4.1 mmol/L 3.6-5.0 39 RBC 5.08 M/ul 4.2-6.3 39 RDW 11.2 % Low 11.5-14.5 39 Sodium 142 mmol/L 137-145 39 WBC 5.2 K/ul 4.1-10.9 39 Lipid Panel 08/12/2009 Chol/HDL Ratio 5.2 39, 40 Cholesterol 196 mg/dL 50-199 39 HDL Cholesterol 37 mg/dL 29-67 39 LDL 132 mg/dL High 20-129 39 Triglycerides 137 mg/dL 30-249 39 VLDL Cholesterol 27 mg/dL 39 Laboratory test finding 07/06/2008 Anion Gap 10 mEq/L 8-16 BUN 14 mg/dL 5-23 BUN/Creat 14.0 Calcium 9.5 mg/dL 8.5-10.1 Carbon Dioxide 31 mEq/L 21-32 Chloride 104 mEq/L 98-107 Creatinine 1.0 mg/dL 0.5-1.4 Glom Filtration Rate, Estimate >60 mL/min >60 Glucose 104 mg/dL 76-115 If >60 mL/min >60 41 Potassium 4.1 mEq/L 3.5-5.1 Sodium 141 mEq/L 136-145 LDL Cholesterol Profile 07/06/2008 Cholesterol 185 mg/dL 120-200 HDL Cholesterol 35 mg/dL 32-96 LDL-Cholesterol 123 mg/dL 62-185 Triglycerides 133 mg/dL 0-210 Laboratory test finding 07/05/2008 Absolute Basophils 0.035 K/ul 0.0-0.3 Absolute Eosinophils 0.060 K/ul 0.0-0.5 Absolute Lymphocytes 1.60 K/ul 0.8-4.8 Absolute Monocytes 0.479 K/ul 0.1-1.0 Absolute Neutrophils 3.67 K/ul 2.05-7.63 Basophil 0.6 % 0-2 Eosinophil 1.0 % 0-4 Hematocrit 43.3 % 37.0-51.0 Hemoglobin 15.7 GM/dl 12.0-16.0 Lymphocytes 27.5 % 20-44 MCH 31.9 pg 26.0-32.0 MCHC 36.3 g/dL High 31.0-36.0 MCV 88 FL 80-97 Monocytes 8.2 % 2-10.0 Neutrophils 62.7 % 50-70 Platelet Count 242 K/ul 140-440 RBC 4.93 M/ul 4.2-6.3 RDW 11.6 % 11.5-14.5 WBC 5.8 K/ul 4.1-10.9 Lipid Panel 07/05/2007 Chol/HDL Ratio 4.7 42 Cholesterol 180 mg/dL 50-199 HDL Cholesterol 38 mg/dL 29-67 LDL 125 mg/dL 20-129 Triglycerides 85 mg/dL 30-249 VLDL Cholesterol 17 mg/dL Laboratory test finding 07/05/2007 Absolute Basophils 0.02 K/ul 0.0-0.3 43 Absolute Eosinophils 0.08 K/ul 0.0-0.5 44 Absolute Lymphocytes 1.78 K/ul 0.8-4.8 45 Absolute Monocytes 0.38 K/ul 0.1-1.0 46 Absolute Neutrophils 3.14 K/ul 2.05-7.63 47 Anion Gap 17 mmol/L 10-20 BUN 15 mg/dL 9-21 BUN/CR Ratio 16.6 Ratio 12-20 Basophil 0.4 % 0-2 Calcium 9.7 mg/dL 8.7-10.5 Carbon Dioxide 28 mmol/L 22-30 Chloride 101 mmol/L 98-107 Creatinine, Serum 0.9 mg/dL 0.8-1.5 Eosinophil 1.4 % 0-4 Glucose 88 mg/dL 75-110 Hematocrit 45.4 % 37.0-51.0 Hemoglobin 15.5 GM/dl 12.0-16.0 Lymphocytes 33.0 % 20-44 MCH 31.3 pg 26.0-32.0 MCHC 34.1 g/dL 31.0-36.0 MCV 92 FL 80-97 Monocytes 7.0 % 2-10.0 Neutrophils 58.2 % 50-70 Platelet Count 243 K/ul 140-440 Potassium 4.4 mmol/L 3.6-5.0 RBC 4.94 M/ul 4.2-6.3 RDW 11.5 % 11.5-14.5 Sodium 142 mmol/L 137-145 WBC 5.4 K/ul 4.1-10.9 Laboratory test finding 07/02/2006 Anion Gap 13 mmol/L 10-20 BUN 17 mg/dL 9- BUN/CR Ratio 15.9 Ratio 12-20 Calcium 9.6 mg/dL 8.7-10.5 Carbon Dioxide 28 mmol/L 22-30 Chloride 106 mmol/L 98-107 Creatinine, Serum 1.1 mg/dL 0.8-1.5 Glucose 97 mg/dL 75-110 Potassium 4.3 mmol/L 3.6-5.0 Sodium 143 mmol/L 137-145 Lipid Panel 07/02/2006 Chol/HDL Ratio 5.3 48 Cholesterol 156 mg/dL 50-199 HDL Cholesterol 29 mg/dL 29-67 LDL 105 mg/dL 20-129 Triglycerides 108 mg/dL 30-249 VLDL Cholesterol 22 mg/dL Lipid Panel 01/13/2006 Chol/HDL Ratio 5.3 49, 50 Cholesterol 203 mg/dL High 50-199 49 HDL Cholesterol 38 mg/dL 29-67 49 LDL 145 mg/dL High 20-129 49 Triglycerides 100 mg/dL 30-249 49 VLDL Cholesterol 20 mg/dL 49 Laboratory test finding 03/11/2005 Act Partial Thrombo Time 28.6 s 22.0- 36.0 Protime 03/11/2005 Inr 1.1 0.9-1.1 51 Protime 14.3 s 12.1-14.6 1 Per NCEP ATP III Guidelines: Results lower than 40 mg/dL are suggestive of increased risk for coronary artery disease. Results > or=to 60 mg/dL are considered a negative risk factor. 2 Per NCEP ATP III Guidelines: Normal Population <130 Patients with medical conditions: CHD/DM Optimal: <100 Borderline high: 130-159 High: 160-189 Very high: >189 3 Updated reference range on new analyzer 4 Updated reference range on new analyzer 5 Concerning GFR Guidelines: Normal function or mild renal disease, if clinically at risk: >/=60 mL/min Moderately decreased: 30-59 Severely decreased: 15-29 Renal failure: <15 Glomerular Filtration Rate (GFR) is estimated based on the MDRD equation, which assumes a steady state for creatinine as recommended by the National Kidney Disease Education Program in conjunction with the National Institutes of Health and the [employer]. Clinical conditions in which it may be necessary to measure GFR by using clearance methods include extremes of age and body size, severe malnutrition or obesity, diseases of skeletal muscle, paraplegia or quadriplegia, vegetarian diet, rapidly changing kidney function, and calculation of the dose of potentially toxic drugs that are excreted by the kidneys. 6 Concerning GFR Guidelines for Americans: Normal function or mild renal disease, if clinically at risk: >/=60 mL/min Moderately decreased: 30-59 Severely decreased: 15-29 Renal failure: <15 7 Updated reference range on new analyzer 8 Updated reference range on new analyzer 9 Updated reference range on new analyzer 10 Concerning GFR Guidelines: Normal function or mild renal disease, if clinically at risk: >/=60 mL/min Moderately decreased: 30-59 Severely decreased: 15-29 Renal failure: <15 Glomerular Filtration Rate (GFR) is estimated based on the MDRD equation, which assumes a steady state for creatinine as recommended by the National Kidney Disease Education Program in conjunction with the National Institutes of Health and the National Kidney Foundation. Clinical conditions in which it may be necessary to measure GFR by using clearance methods include extremes of age and body size, severe malnutrition or obesity, diseases of skeletal muscle, paraplegia or quadriplegia, vegetarian diet, rapidly changing kidney function, and calculation of the dose of potentially toxic drugs that are excreted by the kidneys. 11 Concerning GFR Guidelines for Americans: Normal function or mild renal disease, if clinically at risk: >/=60 mL/min Moderately decreased: 30-59 Severely decreased: 15-29 Renal failure: <15 12 Updated reference range on new analyzer 13 Per NCEP ATP III Guidelines: Results lower than 40 mg/dL are suggestive of increased risk for coronary artery disease. Results > or=to 60 mg/dL are considered a negative risk factor. 14 Per NCEP ATP III Guidelines: Normal Population <130 Patients with medical conditions: CHD/DM Optimal: <100 Borderline high: 130-159 High: 160-189 Very high: >189 15 Per NCEP ATP III Guidelines: Results lower than 40 mg/dL are suggestive of increased risk for coronary artery disease. Results > or=to 60 mg/dL are considered a negative risk factor. 16 Per NCEP ATP III Guidelines: Normal Population <130 Patients with medical conditions: CHD/DM Optimal: <100 Borderline high: 130-159 High: 160-189 Very high: >189 17 Concerning GFR Guidelines: Normal function or mild renal disease, if clinically at risk: >/=60 mL/min Moderately decreased: 30-59 Severely decreased: 15-29 Renal failure: <15 Glomerular Filtration Rate (GFR) is estimated based on the MDRD equation, which assumes a steady state for creatinine as recommended by the National Kidney Disease Education Program in conjunction with the National Institutes of Health and the National Kidney Foundation. Clinical conditions in which it may be necessary to measure GFR by using clearance methods include extremes of age and body size, severe malnutrition or obesity, diseases of skeletal muscle, paraplegia or quadriplegia, vegetarian diet, rapidly changing kidney function, and calculation of the dose of potentially toxic drugs that are excreted by the kidneys. 18 Concerning GFR Guidelines for Americans: Normal function or mild renal disease, if clinically at risk: >/=60 mL/min Moderately decreased: 30-59 Severely decreased: 15-29 Renal failure: <15 19 Concerning GFR Guidelines: Normal function or mild renal disease, if clinically at risk: >/=60 mL/min Moderately decreased: 30-59 Severely decreased: 15-29 Renal failure: <15 Glomerular Filtration Rate (GFR) is estimated based on the MDRD equation, which assumes a steady state for creatinine as recommended by the National Kidney Disease Education Program in conjunction with the National Institutes of Health and the National Kidney Foundation. Clinical conditions in which it may be necessary to measure GFR by using clearance methods include extremes of age and body size, severe malnutrition or obesity, diseases of skeletal muscle, paraplegia or quadriplegia, vegetarian diet, rapidly changing kidney function, and calculation of the dose of potentially toxic drugs that are excreted by the kidneys. 20 Concerning GFR Guidelines for Americans: Normal function or mild renal disease, if clinically at risk: >/=60 mL/min Moderately decreased: 30-59 Severely decreased: 15-29 Renal failure: <15 21 Per NCEP ATP III Guidelines: Results lower than 40 mg/dL are suggestive of increased risk for coronary artery disease. Results > or=to 60 mg/dL are considered a negative risk factor. 22 Per NCEP ATP III Guidelines: Normal Population <130 Patients with medical conditions: CHD/DM Optimal: <100 Borderline high: 130-159 High: 160-189 Very high: >189 23 Per NCEP ATP III Guidelines: Results lower than 40 mg/dL are suggestive of increased risk for coronary artery disease. Results > or=to 60 mg/dL are considered a negative risk factor. 24 Per NCEP ATP III Guidelines: Normal Population <130 Patients with medical conditions: CHD/DM Optimal: <100 Borderline high: 130-159 High: 160-189 Very high: >189 25 Concerning GFR Guidelines: Normal function or mild renal disease, if clinically at risk: >/=60 mL/min Moderately decreased: 30-59 Severely decreased: 15-29 Renal failure: <15 Glomerular Filtration Rate (GFR) is estimated based on the MDRD equation, which assumes a steady state for creatinine as recommended by the National Kidney Disease Education Program in conjunction with the National Institutes of Health and the National Kidney Foundation. Clinical conditions in which it may be necessary to measure GFR by using clearance methods include extremes of age and body size, severe malnutrition or obesity, diseases of skeletal muscle, paraplegia or quadriplegia, vegetarian diet, rapidly changing kidney function, and calculation of the dose of potentially toxic drugs that are excreted by the kidneys. 26 Concerning GFR Guidelines for Americans: Normal function or mild renal disease, if clinically at risk: >/=60 mL/min Moderately decreased: 30-59 Severely decreased: 15-29 Renal failure: <15 27 Concerning GFR Guidelines: Normal function or mild renal disease, if clinically at risk: >/=60 mL/min Moderately decreased: 30-59 Severely decreased: 15-29 Renal failure: <15 Glomerular Filtration Rate (GFR) is estimated based on the MDRD equation, which assumes a steady state for creatinine as recommended by the National Kidney Disease Education Program in conjunction with the National Institutes of Health and the National Kidney Foundation. Clinical conditions in which it may be necessary to measure GFR by using clearance methods include extremes of age and body size, severe malnutrition or obesity, diseases of skeletal muscle, paraplegia or quadriplegia, vegetarian diet, rapidly changing kidney function, and calculation of the dose of potentially toxic drugs that are excreted by the kidneys. 28 Concerning GFR Guidelines for Americans: Normal function or mild renal disease, if clinically at risk: >/=60 mL/min Moderately decreased: 30-59 Severely decreased: 15-29 Renal failure: <15 29 Per NCEP ATP III Guidelines: Results lower than 40 mg/dL are suggestive of increased risk for coronary artery disease. Results > or=to 60 mg/dL are considered a negative risk factor. 30 Per NCEP ATP III Guidelines: Normal Population <130 Patients with medical conditions: CHD/DM Optimal: <100 Borderline high: 130-159 High: 160-189 Very high: >189 31 For -[place] patients multiply result by 1.180 32 For -[place] patients multiply result by 1.180 33 Normal Range: Male: <4.98 Female: <4.45 34 OPERATION/PROCEDURE Right hydrocelectomy DIAGNOSIS: "SPERMATIC CORD REGION , RIGHT HYDROCELECTOMY": HYDROCELE. WYS/cris 1137 GROSS Received in a single container additionally labeled "RIGHT SPERMATOCELE SAC" . This is a delicate white collapsed sac-like structure measuring 6.7 x 3.5 x 0.2 cm. This is a simple cystic sac with translucent kaufman and no focal abnormality. Strip-like fragments are submitted within a single cassette. WS/cris MICROSCOPIC Sections show cuboidal cell lined tissue with dilated capillaries in a delicate fibrous stroma. PRE OPERATIVE DIAGNOSIS Right hydrocele REVIEW CODE CODE: I ----- JEFF Vasquez MD 09/18/10 1146 ----- 35 Normal Range: Male: <4.98 Female: <4.45 36 Species Submitted: EXODES SCAPULARIS Developmental Stage: FEMALE Hypostome (Mouthparts): DETACHED (Detached may result in localized reaction at site of bite.) Degree of Engorgement: 1 (0-5 scale) 0=tick had not fed, minimal transmission risk. 1=Slight bloodmeal (less than 24 hours of feeding). 5= Fully engorged (more than 60 hours of feeding). Condition Received: GOOD Notes: TICK HAD FED LESS THAN 24 HOURS. LOW POTENTIAL RISK OF PATHOGEN TRANSMISSION. Ixodes scapularis, the "Blacklegged tick" (or more commonly the "[place] tick"), is recognized as the vector of Lyme disease, human granulocytic anaplasmosis ( HGA) and babesiosis in the [facility]. Babesiosis and anaplasmosis are relatively uncommon in [facility] when compared to Lyme disease. However , the prevalence of these diseases may be increasing in certain regions. TRANSMISSION OF PATHOGENS IS UNLIKELY TO OCCUR BEFORE 36-48 HOURS OF FEEDING. If your tick has fed for less than 36-48 hours (engorgement 0-2), your risk for acquiring an illness from this tick may be greatly reduced. Symptoms of Lyme disease include: expanding rash, fever, headache, fatigue stiff neck, and muscle or joint pain. Symptoms may last for weeks and usually begin within a month of exposure. Babesiosis symptoms include fever, chills, sweating, myalgias, fatigue, hepatosplenomegaly, and hemolytic anemia. Symptoms typically occur after an incubation period of 1 to 4 weeks. Initial syptoms of Anaplasmosis typically occur following an incubation period of about 5-10 days after the tick bite and include: fever, headache, malaise, muscle aches, nausea, vomiting, diarrhea, cough, joint pains, confusion, and rarely rash. Under certain circumstances (geographic locations where the tick was acquired, whether the tick was infected, amount of time the tick was attached and feeding, etc) prompt medical attention may be required. Consult your physician or pc technician for additional information. Testing performed by: [facility] Tick ID service [facility], [facility] [address] [place] [address] 37 QUERY: @EMR Pat ID: QUERY: @EMR Req #: 38 QUERY: @EMR Pat ID: QUERY: @EMR Req #: 39 FASTING 40 Normal Range: Male: <4.98 Female: <4.45 41 Note: Persistent reduction for 3 months or more in an eGFR <60 mL/min/ 1.73 m2 defines CKD. Patients with eGFR values >/=60 mL/min/1.73 m2 may also have CKD if evidence of persistent proteinuria is present. The original MDRD equation for estimated GFR is not valid for patients less than 18 years of age. Additional information may be found at [email or web address]. 42 Normal Range: Male: <4.98 Female: <4.45 43 Result changed from * to 0.02 44 Result changed from * to 0.08 45 Result changed from * to 1.78 46 Result changed from * to 0.38 47 Result changed from * to 3.14 48 Normal Range: Male: <4.98 Female: <4.45 49 FASTING schedule fasting this month 50 Normal Range: Male: <4.98 Female: <4.45 51 THERAPEUTIC INR RANGE: 2.0 - 3.0 DVT, Pulmonary embolus, prophylaxis against venous thrombosis or systemic embolization in high risk patients. 2.5 - 3.5 Mechanical heart valves Procedures Date CPT Code Description Status Comment 02/12/2017 67926 Remove Impact Cerumen Completed Irrigation/Lavage 08/13/2016 19998 Brief Emotional/Behav Completed Assessment W/ Scoring Doc Per Standard Inst 05/02/2013 Colonoscopy Completed Document: 05/02/13 - Colonoscopy Encounters Type Date Location Provider CPT E/M Dx Office Visit 08/13/2016 10:30a Mir Zhou DO G0439 Z00.01 E11.9 I10 E78.2 M17.9 Z85.46 N50.9 Z23 Office Visit 02/05/2016 8:00[place] [address] E11.9 I10 E78.2 M17.9 Z85.46 N50.9 Office Visit 08/01/2015 8:00[place] [address] E11.9 I10 E78.2 M17.9 Z85.46 N50.9 Office Visit 01/18/2015 8:30[place] [address] E11.9 I10 E78.2 M17.9 Z85.46 H61.21 N50.9 Office Visit 09/12/2014 9:45[place] [address] 250.00 401.1 272.2 715.96 V10.46 Office Visit 06/05/2014 9:00[place] [address] 250.00 372.72 401.1 272.2 715.96 V10.46 366.10 Plan of Care 02/12/2017 - Mir Patel, DOE11.9 Type 2 diabetes mellitus without complicationsNew Labs:Hemoglobin F6dGdjzrm up:Get fasting blood work in 6 months , then see me a few days later for a Medicare Wellness Exam- 15 mins.I10 Essential (primary) hypertensionNew Labs:CBC With Auto DiffBasic (BMP)TSHLipid BjtgjdhniD80.2 Mixed elwxhgfealpjjdP35.9 Osteoarthritis of knee, ranpyoadwkyG45.46 Personal history of malignant neoplasm of jpjbzqxsR45.9 Disorder of male genital organs, ehpiltfvjmmG95.9 Acute upper respiratory infection, drsvfttffwmU48.23 Impacted cerumen, bilateral
--- NOTE | 2017-03-10 17:10 | ED ---
Throat Pain/Nasal Congestion - HPI Summary HPI Summary: 77 yr old male with the complaint of sinus pressure, post nasal drip and coughing. Onset four days ago. He states he has allergies to Penicillin. He has been on z pack twice in the past couple months that seems to get him better , but then his symptoms have come back. Denies fever, chills. No other complaints. - History of Current Complaint Chief Complaint: UCRespiratory Time Seen by Provider: 03/10/17 16:53 - Allergies/Home Medications Allergies/Adverse Reactions: Allergies Allergy/AdvReac Type Severity Reaction Status Date / Time Penicillins Allergy Severe Rash Verified 03/10/17 15:44 PMH/Surg Hx/FS Hx/Imm Hx Cardiovascular History: Reports: Hx Hypertension - now controlled without medication Respiratory History: Denies: Hx Asthma - Cancer History Cancer Type, Location and Year: 2005- prostate - Surgical History Surgery Procedure, Year, and Place: 1987- knee surgery. 2005- prostate cancer surgery. hydrocele Infectious Disease History: No Infectious Disease History: Denies: Traveled Outside the [place] in Last 30 Days - Social History Alcohol Use: Rare Substance Use Type: Reports: None Smoking Status (MU): Former Smoker Review of Systems Positive: Ear Ache, Nasal Discharge, Other - post nasal drip Positive: Cough All Other Systems Reviewed And Are Negative: Yes Physical Exam Triage Information Reviewed: Yes Vital Signs On Initial Exam: Initial Vitals Temp Pulse Resp BP Pulse Ox 97.8 F 58 20 141/75 98 03/10/17 15:46 03/10/17 15:46 03/10/17 15:46 03/10/17 15:46 03/10/17 15:46 Vital Signs Reviewed: Yes Appearance: Positive: Well-Appearing, No Pain Distress Skin: Positive: Warm, Skin Color Reflects Adequate Perfusion Head/Face: Positive: Normal Head/Face Inspection Eyes: Positive: EOMI ENT: Positive: Pharynx normal, TMs normal, Sinus tenderness - bilateral Neck: Positive: Nontender Respiratory/Lung Sounds: Positive: Clear to Auscultation, Breath Sounds Present Cardiovascular: Positive: RRR. Negative: Murmur Musculoskeletal: Positive: Strength/ROM Intact Neurological: Positive: Sensory/Motor Intact, Alert, Oriented to Person Place, Time, CN Intact II-III Psychiatric: Positive: Normal - Armando Coma Scale Best Eye Response: 4 - Spontaneous Best Motor Response: 6 - Obeys Commands Best Verbal Response: 5 - Oriented Coma Scale Total: 15 Diagnostics - Vital Signs Vital Signs Temp Pulse Resp BP Pulse Ox 03/10/17 15:46 97.8 F 58 20 141/75 98 - Laboratory Lab Statement: Any lab studies that have been ordered have been reviewed, and results considered in the medical decision making process. EENT Course/Dx - Course Course Of Treatment: 77 yr old male with sinusitis. Allergy to pencillins. Rx with Biaxin - Diagnoses Provider Diagnoses: Sinusitis, Hypertension Discharge - Discharge Plan Condition: Good Disposition: HOME Prescriptions: Clarithromycin TAB* [Biaxin 500 MG TAB*] 500 mg PO BID #20 tab Patient Education Materials: Sinusitis (ED), Hypertension (ED) Referrals: Mir Patel DO [Primary Care Provider] - 2 Days
== END 2017-03-10 17:16 | disposition home or self-care (01) ==
LOC: UCCORT 15:22
DX: J32.9 Chronic sinusitis, unspecified (principal); I10 Essential (primary) hypertension; Z85.46 Personal history of malignant neoplasm of prostate; Z88.0 Allergy status to penicillin; Z87.891 Personal history of nicotine dependence
CPT/HCPCS: 99212; G0463

== ENCOUNTER 2017-06-20 12:54 | Emergency (ER) | payer MEDICARE, BC ==
--- OUTSIDE RECORDS SUMMARY | 2017-06-20 13:11 | XMS REPORT ---
:1940 External Reference #:[id number] Author Organization [facility] pc Address [address] [address] Phone [phone] Care Team Providers Name Role Phone Mir Patel DO Care Team Information Mesmerist Unavailable Payers Type Date Identification Numbers Payment Provider Subscriber Medicare Primary Effective: Policy Number: Medicare Juan Carlos Delcid 2012 [id number] PayID: [id number] [address] [place] [address] [facility] Part B Effective: Policy Number: BCBS Commercial Juan Carlos Delcid 2012 [id number] PayID: [id number] [address] [address] [place] [address] Problems Date Description Provider Status Onset: 05/25/2013 [...] 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 Allergies, Adverse Reactions, Alerts Date Description Reaction Status Severity Comments 12/17/2004 Amoxicillin active 02/12/2017 Penicillin active Medications Medication Date Status Form Strength Qnty SIG Indications Ordering Provider Lisinopril Active Tablets 10mg 30tabs 1 by I10 Bridgette Cedillo MD daily in the morning Pravastatin Active Tablets 20mg 30tabs take 1 Patel, Sodium 014 tablet Mir, once DO daily Aspirin Adult Active Tablets DR 81mg 1 po qd Unknown Low Strength 000 Immunizations CPT Code Status Date Vaccine Lot # [id number] Given 12/21/2016 Influenza Vac, 3 Yrs & Older, Quadrivalent, [place], [place] Use [address] Given 08/13/2016 Prevnar 13 Pneumococal Conjugate Vaccine [id number] 22456 Given 11/23/2014 Fluzone Highdose Age 65 And Over Preservative & Antibiotic Free 86338 Given 10/31/2012 Afluria Or Fluvirin Flu Vac Intramuscular 30496 Given 07/05/2008 Pneumococcal 23 Immunization Adult Or Immunosuppressed Patient 26828 Given 12/17/2004 Afluria Or Fluvirin Flu Vac Intramuscular 40045 Given 09/08/2000 Immunization Td 7 Yrs Or Older Vital Signs Date Vital Result Comment 05/25/2017 Weight 190.00 lb Heart Rate 70 /min BP Systolic 136 mmHg BP Diastolic 68 mmHg BP Systolic Recheck 146 mmHg BP Diastolic Recheck 82 mmHg Respiratory Rate 18 /min Height 69.5 inches 5'9.50" (01/2016) BMI (Body Mass Index) 27.7 kg/m2 05/01/2017 Weight 195.06 lb 188 at home this morning with few clothes Heart Rate 74 /min BP Systolic 162 mmHg recheck higher BP Diastolic 90 mmHg recheck higher Respiratory Rate 18 /min Height 69.5 inches 5'9.50" (01/2016) BMI (Body Mass Index) 28.4 kg/m2 02/12/2017 Body Temperature 96.9 F Weight 189.00 [...] 127 mg/dL High 70-105 BUN 20 mg/dL 08-10 Creatinine 1.0 mg/dL 0.5-1.4 Calcium 9.3 mg/dL 8.5-10.2 Non Ashlyn Egfr >60 >60 10 Ashlyn Egfr >60 >60 11 Anion Gap 13 mmol/L 08-30 12 Laboratory test finding 08/10/2016 TSH 1.18 uIU/mL 0.35-4.94 Lipid Treatment 08/10/2016 Cholesterol 143 mg/dL 50-199 Triglycerides 96 mg/dL 30-200 HDL 34 mg/dL 13 Chol/ HDL Ratio 4.2 ratio 4.0-6.7 VLDL 19 mg/dL 2 LDL (Calc) 89 mg/dL 14 Alt 13 U/L Ast 14 U/L Lipid Treatment 01/31/2016 Cholesterol 137 mg/dL 50-199 Triglycerides 103 mg/dL 30-200 HDL 34 mg/dL 15 Chol/ HDL Ratio 4.0 ratio 4.0-6.7 VLDL 21 mg/dL LDL (Calc) 82 mg/dL 16 Alt 14 U/L Ast 16 U/L Laboratory test finding 01/31/2016 Hemoglobin A1c 6.4 [...] 135 mg/dL High 70-105 BUN 15 mg/dL 6- Creatinine 0.9 mg/dL 0.5-1.4 Calcium 9.3 mg/dL 8.5-10.2 Anion Gap 10 mmol/L 07-29 Non Ashlyn Egfr >60 >60 17 Ashlyn [...] 11.5-14.5 PLT Count 287 K/ul 140-400 Basic ([facility]) 07/25/2015 Sodium 137 mmol/L 134-142 Potassium 3.9 mmol/L 3.5-5.2 Chloride 105 mmol/L 97-109 Carbon Dioxide 24 mmol/L 24-34 Glucose 127 mg/dL High 70-105 BUN 19 mg/dL 6-26 Creatinine 0.9 mg/dL 0.5-1.4 Calcium 9.5 mg/dL 8.5-10.2 Anion Gap 12 mmol/L 07-29 Non Ashlyn Egfr >60 >60 19 Ashlyn Egfr >60 >60 20 Laboratory test finding 07/25/2015 TSH 1.37 uIU/mL 0.35-4.94 Lipid Treatment 07/25/2015 Cholesterol 136 mg/dL 50-199 Triglycerides 111 mg/dL 30-200 HDL 32 mg/dL 21 Chol/ HDL Ratio 4.3 ratio 4.0-6.7 VLDL 22 mg/dL 2- LDL (Calc) 82 mg/dL - 22 Alt 11 U/L Ast 11 U/L - Lipid Treatment 01/14/2015 Cholesterol 138 mg/dL 50-199 Triglycerides 72 mg/dL 30-200 HDL 39 mg/dL 23 Chol/ HDL Ratio 3.5 ratio Low 4.0-6.7 VLDL 14 mg/dL LDL (Calc) 85 mg/dL - 24 Alt 15 U/L - Ast 14 U/L Laboratory test finding 01/14/2015 Hemoglobin A1c 6.4 [...] 123 mg/dL High 70-105 BUN 19 mg/dL 6-26 Creatinine 1.0 mg/dL 0.5-1.4 Calcium 9.4 mg/dL 8.5-10.2 Anion Gap 9 mmol/L 6- Non Ashlyn Egfr >60 >60 25 Ashlyn [...] 122 mg/dL High 70-105 BUN 14 mg/dL 6- Creatinine 0.9 mg/dL 0.5-1.4 Calcium 9.4 mg/dL 8.5-10.2 Anion Gap 9 mmol/L 07-29 Non Ashlyn Egfr >60 >60 27 Ashlyn [...] 0.0-4.0 % Lymph 23 % 20-44 % [place] 9.7 % 2.0-10.0 % Aubrey 64 % 50-70 Absolute Baso. 0.1 K/ul 0.0-0.3 Absolute Eos. 0.2 K/ul 0.0-0.5 Absolute Lymph. 1.4 K/ul 0.8-4.8 Absolute [place]. 0.6 K/ul 0.1-1.0 Absolute Aubrey. 3.87 K/ul [...] 0.0-4.0 % Lymph 26 % 20-44 % [place] 7.8 % 2.0-10.0 % Aubrey 64 % 50-70 A/G Ratio 1.7 ratio 1.6-2.2 Absolute Baso. 0.0 K/ul 0.0-0.3 Absolute Eos. 0.1 K/ul 0.0-0.5 Absolute Lymph. 1.8 K/ul 0.8-4.8 Absolute [place]. 0.5 K/ul 0.1-1.0 Absolute Aubrey. 4.48 K/ul [...] Gap 13 mmol/L 10-20 BUN 17 mg/dL 9-21 BUN/CR Ratio 15.9 Ratio 12-20 Calcium 9.6 [...] High: 160-189 Very high: >189 31 For -[place]ize[place] patients multiply result by 1.180 32 For -[place]ize[place] patients multiply result by 1.180 33 Normal [...] the "Blacklegged tick" (or more commonly the "[place] tick"), is recognized as the vector of Lyme disease, human granulocytic anaplasmosis ( HGA) and babesiosis in the [facility]. Babesiosis and anaplasmosis are relatively uncommon in [facility] when compared to Lyme disease. However , [...] may be required. Consult your physician or personnel manager for additional information. Testing performed by: [facility] Tick ID service [facility], [place] [facility] [address] [place] [address] 37 QUERY: @EMR Pat ID: QUERY: @EMR [...] Date CPT Code Description Status Comment 02/12/2017 89710 Remove Impact Cerumen Completed Irrigation/Lavage 08/13/2016 90964 Brief Emotional/Behav Completed Assessment W/ Scoring Doc Per Standard Inst 05/02/2013 Colonoscopy Completed Document: 05/02/13 - Colonoscopy Encounters Type Date Location Provider CPT E/M Dx Office Visit 05/01/2017 10:30a [facility] [place] [address] I10 E11.9 E78.2 Office Visit 02/12/2017 10:15a [facility] [place] [place] [address] E11.9 I10 E78.2 M17.9 Z85.46 N50.9 J06.9 H61.23 Office Visit 08/13/2016 10:30a [facility] [place] Patel [place] G0439 Z00.01 E11.9 I10 E78.2 M17.9 Z85.46 N50.9 Z23 Office Visit 02/05/2016 8:00a [facility] [place] [address] E11.9 I10 E78.2 M17.9 Z85.46 N50.9 Office Visit 08/01/2015 8:00a [facility] [place] [address] E11.9 I10 E78.2 M17.9 Z85.46 N50.9 Office Visit 01/18/2015 8:30a [facility] [place] [address] E11.9 I10 E78.2 M17.9 Z85.46 H61.21 N50.9 Office Visit 09/12/2014 9:45a [facility] [place] [address] 250.00 401.1 272.2 715.96 V10.46 Office Visit 06/05/2014 9:00a [facility] [place] [address] 250.00 372.72 401.1 272.2 715.96 V10.46 366.10 Plan of Care Future Appointment(s):07/14/2017 8:15 am - Schedule, Laboratory at [facility]2017 8:00 am - Mir Patel, DO at [facility]05/25/2017 - Mir Patel, DOI10 Essential (primary) hypertensionFollow up:Follow up as scheduled.E11.9 Type 2 diabetes mellitus without aasoniekqxlqlM67 YwdrgF95.27 Body mass index (BMI) 27.0-27.9, adult
[2017-06-20 14:38] VITALS: BP 126/69
--- NOTE | 2017-06-20 15:04 | UC ---
Respiratory Complaint HPI - HPI Summary HPI Summary: C/O 3 days with congestion, sinus pain, cough productive green sputum. Not SOB. - History of Current Complaint Chief Complaint: UCRespiratory Stated Complaint: SINUS COMPLAINT Time Seen by Provider: 06/20/17 14:54 Hx Obtained From: Patient Onset/Duration: Sudden Onset, Lasting Days - 3, Still Present Timing: Constant Severity Initially: Mild Severity Currently: Moderate Pain Intensity: 3 Character: Cough: Productive Alleviating Factors: Nothing Associated Signs And Symptoms: Positive: URI, Nasal Congestion, Sinus Discomfort. Negative: Dyspnea, Wheezing Related History: Seasonal Allergies - Allergies/Home Medications Allergies/Adverse Reactions: Allergies Allergy/AdvReac Type Severity Reaction Status Date / Time Penicillins Allergy Rash Verified 06/20/17 14:39 Home Medications: Home Medications Lisinopril [Zestril] 10 mg PO DAILY 06/20/17 [History Confirmed 06/20/17] PMH/Surg Hx/FS Hx/Imm Hx Endocrine History: Diabetes Cardiovascular History: Hypertension Cancer History: Prostate Cancer - Surgical History Surgical History: Yes Surgery Procedure, Year, and Place: 1987- right knee surgery. 2005- prostate cancer surgery. hydrocele - Family History Known Family History: Positive: Cardiac Disease - Social History Occupation: Employed Part-time Lives: With Family Alcohol Use: Rare Substance Use Type: None Smoking Status (MU): Former Smoker When Did the Patient Quit Smoking/Using Tobacco: 52 yrs - Immunization History Most Recent Influenza Vaccination: Current for season Review of Systems ENT: Sore Throat, Sinus Pain/Tenderness Respiratory: Cough Is Patient Immunocompromised?: No All Other Systems Reviewed And Are Negative: Yes Physical Exam Triage Information Reviewed: Yes Appearance: No Pain Distress, Ill-Appearing - mild Vital Signs: Initial Vital Signs Temp 97.9 F 06/20/17 14:27 Pulse 66 06/20/17 14:27 Resp 18 06/20/17 14:27 BP 126/69 06/20/17 14:27 Pulse Ox 99 06/20/17 14:27 Eyes: Positive: Conjunctiva Clear ENT: Positive: Pharynx normal, Nasal congestion, TMs normal Neck exam: Normal Respiratory: Positive: Wheezing - expiratory wheeze with coughing Cardiovascular Exam: Normal Musculoskeletal Exam: Normal Neurological Exam: Normal Psychological Exam: Normal Skin Exam: Normal UC Diagnostic Evaluation - Laboratory O2 Sat by Pulse Oximetry: 99 Respiratory Course/Dx - Differential Dx/Diagnosis Differential Diagnosis/HQI/PQRI: Asthma, Lower Resp Infection, Sinusitis Provider Diagnoses: Acute URI. Acute sinusitis. Acute bronchospasm Discharge - Sign-Out/Discharge Documenting (check all that apply): Discharge/Admit/Transfer - Discharge Plan Condition: Stable Disposition: HOME Prescriptions: DOXYcycline CAP(*) [DOXYcycline 100MG CAP(*)] 100 mg PO BID #20 cap predniSONE TAB* [Deltasone TAB*] 20 mg PO DAILY #18 tab Patient Education Materials: Sinusitis (ED), Doxycycline (By mouth), Bronchospasm (ED), Prednisone (By mouth), Upper Respiratory Infection (ED) Referrals: Mir Patel DO [Primary Care Provider] - - Billing Disposition and Condition Condition: STABLE Disposition: HOME
== END 2017-06-20 15:19 | disposition home or self-care (01) ==
LOC: UCCORT 12:54
DX: J06.9 Acute upper respiratory infection, unspecified (principal); J01.90 Acute sinusitis, unspecified; J98.01 Acute bronchospasm; Z88.0 Allergy status to penicillin; E11.9 Type 2 diabetes mellitus without complications; I10 Essential (primary) hypertension
CPT/HCPCS: 99212; G0463

== ENCOUNTER 2017-11-14 20:44 | Emergency (ER) | payer MEDICARE, BC ==
--- OUTSIDE RECORDS SUMMARY | 2017-11-14 21:01 | XMS REPORT ---
:1940 External Reference #:[id number] Author Organization 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 Payers Type Date Identification Numbers Payment Provider Subscriber Medicare Primary Effective: Policy Number: Medicare Juan Carlos Delcid 2012 [id number] PayID: [id number] [address] [place] [address] [facility] Part B Effective: Policy Number: BCBS Commercial Juan Carlos Delcid 2012 [id number] PayID: [id number] [address] [address] [place] [address] Problems Date Description Provider Status Onset: 05/25/2013 [...] Active Tablets 10mg 30tabs 1 by I10 Paetl, 018 mouth Mir, daily in DO the morning Pravastatin Active Tablets 20mg 30tabs take 1 Patel, Sodium 014 tablet Mir, once DO daily Aspirin Adult Active Tablets DR 81mg 1 po qd Unknown Low Strength 000 Immunizations CPT Code Status Date Vaccine Lot # [id number] Given 12/21/2016 Influenza Vac, 3 Yrs & Older, Quadrivalent, [place] [address] Given 08/13/2016 Prevnar 13 Pneumococal Conjugate Vaccine [id number] 20212 Given 11/23/2014 Fluzone Highdose Age 65 And Over Preservative & Antibiotic Free 27792 Given 10/31/2012 Afluria Or Fluvirin Flu Vac Intramuscular 52624 Given 07/05/2008 Pneumococcal 23 Immunization Adult Or Immunosuppressed Patient 70797 Given 12/17/2004 Afluria Or Fluvirin Flu Vac Intramuscular 19663 Given 09/08/2000 Immunization Td 7 Yrs Or Older [id number] Refused 11/04/2017 Fluzone Highdose Age 65 And Over Preservative & Antibiotic Free Vital Signs Date Vital Result Comment 11/04/2017 Weight 186.00 lb Heart Rate 68 /min BP Systolic 140 mmHg BP Diastolic 68 mmHg Respiratory Rate 18 /min Height 69.5 inches 5'9.50" (01/2016) BMI (Body Mass Index) 27.1 kg/m2 07/21/2017 Weight 183.00 lb Heart Rate 66 /min BP Systolic 128 mmHg BP Diastolic 72 mmHg Respiratory Rate 17 /min Height 69.5 inches 5'9.50" (01/2016) BMI (Body Mass Index) 26.6 kg/m2 05/25/2017 Weight 190.00 lb Heart Rate 70 [...] Test Result H/L Range Note Lipid Treatment 07/19/2017 Cholesterol 133 mg/dL 50-199 1 Triglycerides 85 mg/dL 30-200 1 HDL 38 mg/dL 29-71 1, 2 Chol/ HDL Ratio 3.5 ratio Low 4.0-6.7 1 VLDL 17 mg/dL 2-29 1 LDL (Calc) 78 mg/dL 20-99 1, 3 Alt 14 U/L 3-42 1 Ast 15 U/L 8-42 1 Hemoglobin A1c 07/19/2017 Hemoglobin A1c 6.7 % High 4.1-5.9 1 Estimated Average Glucose Calc 146 mg/dL High 71-140 1 CBC With Auto Diff 07/19/2017 WBC 4.8 K/uL 4.1-11.0 1 RBC 4.60 M/uL 4.60-6.10 1 Hemoglobin 14.9 gm/dL 13.5-18.0 1 Hematocrit 42.9 % 41.0-53.0 1 MCV 93.2 fL 80.0-97.0 1 MCH 32.3 pg High 27.0-32.0 1 MCHC 34.6 g/dL 32.0-36.0 1 RDW 13.9 % 11.5-14.5 1 PLT Count 205 K/ul 140-400 1 MPV 9.6 FL 7.1-10.7 1 Neutrophil 51.7 % 35.0-75.0 1 Lymphocyte 33.3 % 16.0-52.0 1 Monocyte 10.1 % High 2.0-10.0 1 Eosinophil 4.1 % 0.0-5.0 1 Basophil 0.8 % 0.0-4.0 1 Abs Neutrophils 2.5 K/uL 2.1-8.0 1 Abs Lymphocytes 1.6 K/uL 0.8-5.5 1 Abs Monocytes 0.5 K/uL 0.1-1.0 1 Abs Eosinophils 0.2 K/uL 0.0-0.5 1 Abs Basophils 0.0 K/uL 0.0-0.3 1 Basic (BMP) 07/19/2017 Sodium 140 mmol/L 135-146 1, 4 Potassium 3.8 mmol/L 3.5-5.2 1 Chloride# 106 mmol/L 97-110 1, 5 Carbon Dioxide 24 mmol/L 24-34 1 Glucose 135 mg/dL High 70-105 1 BUN 19 mg/dL 6-26 1 Creatinine 1.0 mg/dL 0.5-1.4 1 Calcium 9.3 mg/dL 8.5-10.2 1 Non Ashlyn Egfr >60 >60 1, 6 Ashlyn Egfr >60 >60 1, 7 Anion Gap 10 mmol/L 5-15 1, 8 Laboratory test finding 07/19/2017 TSH 1.16 uIU/mL 0.35-4.94 1 Hemoglobin A1c 02/05/2017 Hemoglobin A1c 6.6 % [...] Basic (BMP) 02/05/2017 Sodium 141 mmol/L 135-146 9 Potassium 3.9 mmol/L 3.5-5.2 Chloride# 105 mmol/L 97-110 10 Carbon Dioxide 25 mmol/L 24-34 Glucose 131 mg/dL High 70-105 Creatinine 1.1 mg/dL 0.5-1.4 Calcium 9.0 mg/dL 8.5-10.2 Non Ashlyn Egfr >60 >60 11 Ashlyn Egfr >60 >60 12 Anion Gap 11 mmol/L 7-16 13 BUN 21 mg/dL 6- Laboratory test finding 02/05/2017 TSH 1.45 uIU/mL 0.35-4.94 Lipid Treatment 02/05/2017 Cholesterol 121 mg/dL 50-199 Triglycerides 72 mg/dL 30-200 HDL 29 mg/dL 14 Chol/ HDL Ratio 4.2 ratio 4.0-6.7 VLDL 14 mg/dL 2- LDL (Calc) 78 mg/dL 20- 15 Alt 19 U/L 3-42 Ast 20 U/L 8- Lipid Treatment 08/10/2016 Cholesterol 143 mg/dL 50-199 Triglycerides 96 mg/dL 30-200 HDL 34 mg/dL 16 Chol/ HDL Ratio 4.2 ratio 4.0-6.7 VLDL 19 mg/dL 2- LDL (Calc) 89 mg/dL 20- 17 Alt 13 U/L 3-42 Ast 14 U/L 8- Hemoglobin A1c 08/10/2016 Hemoglobin A1c 6.2 % [...] Basic (BMP) 08/10/2016 Sodium 142 mmol/L 135-146 18 Potassium 4.0 mmol/L 3.5-5.2 Chloride# 107 mmol/L 97-110 19 Carbon Dioxide 26 mmol/L 24-34 Glucose 127 mg/dL High 70-105 BUN 20 mg/dL 6- Creatinine 1.0 mg/dL 0.5-1.4 Calcium 9.3 mg/dL 8.5-10.2 Non Ashlyn Egfr >60 >60 20 Ashlyn Egfr >60 >60 21 Anion Gap 13 mmol/L 7-16 22 Laboratory test finding 08/10/2016 TSH 1.18 uIU/mL 0.35-4.94 Laboratory test finding 01/31/2016 Hemoglobin A1c 6.4 [...] mmol/L 6-14 Non Ashlyn Egfr >60 >60 23 Ashlyn Egfr >60 >60 24 Laboratory test finding 01/31/2016 TSH 1.15 uIU/mL 0.35-4.94 Lipid Treatment 01/31/2016 Cholesterol 137 mg/dL 50-199 Triglycerides 103 mg/dL 30-200 HDL 34 mg/dL 25 Chol/ HDL Ratio 4.0 ratio 4.0-6.7 VLDL 21 mg/dL 2-29 LDL (Calc) 82 mg/dL - 26 Alt 14 U/L 3-42 Ast 16 U/L 8-42 Lipid Treatment 07/25/2015 Cholesterol 136 mg/dL 50-199 Triglycerides 111 mg/dL 30-200 HDL 32 mg/dL 27 Chol/ HDL Ratio 4.3 ratio 4.0-6.7 VLDL 22 mg/dL 2-29 LDL (Calc) 82 mg/dL 20- 28 Alt 11 U/L 3-42 Ast 11 U/L 8-42 Laboratory test finding 07/25/2015 Hemoglobin A1c 5.9 % 4.1-5.9 CBC With Auto Diff 07/25/2015 WBC 6.4 K/uL 4.1-11.0 RBC 4.47 M/uL Low 4.60-6.10 Hemoglobin 13.7 gm/dL 13.5-18.0 Hematocrit 40.5 % Low 41.0-53.0 MCV 90.5 fL 80.0-97.0 MCH 30.7 pg 27.0-32.0 MCHC 33.9 g/dL 32.0-36.0 RDW 13.6 % 11.5-14.5 PLT Count 287 K/ul 140-400 Basic ([facility]) 07/25/2015 Sodium 137 mmol/L 134-142 Potassium 3.9 mmol/L 3.5-5.2 Chloride 105 mmol/L 97-109 Carbon Dioxide 24 mmol/L 24-34 Glucose 127 mg/dL High 70-105 BUN 19 mg/dL 6-26 Creatinine 0.9 mg/dL 0.5-1.4 Calcium 9.5 mg/dL 8.5-10.2 Anion Gap 12 mmol/L 6-14 Non Ashlyn Egfr >60 >60 29 Ashlyn Egfr >60 >60 30 Laboratory test finding 07/25/2015 TSH 1.37 uIU/mL 0.35-4.94 Laboratory test finding 01/14/2015 Hemoglobin A1c 6.4 [...] mmol/L 6- Non Ashlyn Egfr >60 >60 31 Ashlyn Egfr >60 >60 32 Laboratory test finding 01/14/2015 TSH 0.93 uIU/mL 0.35-4.94 Lipid Treatment 01/14/2015 Cholesterol 138 mg/dL 50-199 Triglycerides 72 mg/dL 30-200 HDL 39 mg/dL 33 Chol/ HDL Ratio 3.5 ratio Low 4.0-6.7 VLDL 14 mg/dL 2- LDL (Calc) 85 mg/dL 20- 34 Alt 15 U/L 3-42 Ast 14 U/L 8- Laboratory test finding 09/05/2014 Microalbumin, Random Urine 6.5 ug/ml 0.0-20.0 Hemoglobin A1c 6.0 % High 4.1-5.9 Laboratory test finding 06/01/2014 Hemoglobin A1c 6.6 % High 4.1-5.9 Lipid Treatment 06/01/2014 Cholesterol 151 mg/dL 50-199 Triglycerides 119 mg/dL 30-200 HDL 31 mg/dL 35 Chol/ HDL Ratio 4.9 ratio 4.0-6.7 VLDL 24 mg/dL 2-29 LDL (Calc) 96 mg/dL 20-99 36 Alt 17 U/L 3-42 Ast 15 U/L 8-42 Basic (BMP) 06/01/2014 Sodium 138 mmol/L 134-142 Potassium 4.6 mmol/L 3.5-5.2 Chloride 105 mmol/L 97-109 Carbon Dioxide 29 mmol/L 24-34 Glucose 122 mg/dL High 70-105 BUN 14 mg/dL 6-26 Creatinine 0.9 mg/dL 0.5-1.4 Calcium 9.4 mg/dL 8.5-10.2 Anion Gap 9 mmol/L 6-14 Non Ashlyn Egfr >60 >60 37 Ashlyn Egfr >60 >60 38 Lipid Panel 11/24/2013 Chol/HDL Ratio 4.5 ratio Cholesterol 149.0 mg/dL 50.0-199.0 HDL 33.0 mg/dL 29.0-67.0 LDL, Calculated 93.2 mg/dL 20.0-129.0 Triglycerides 114.0 mg/dL 30.0-249.0 vLDL 22.8 ng/dL Laboratory test finding 11/24/2013 % Baso. 1.0 % 0.0-2.0 % Eos. 2.7 % 0.0-4.0 % Lymph 23 % 20-44 % [place] 9.7 % 2.0-10.0 % [place] 64 % 50-70 Absolute Baso. 0.1 K/ul 0.0-0.3 Absolute Eos. 0.2 K/ul 0.0-0.5 Absolute Lymph. 1.4 K/ul 0.8-4.8 Absolute [place]. 0.6 K/ul 0.1-1.0 Absolute [place]. 3.87 K/ul [...] 0.50-6.00 WBC 6.1 K/ul 4.1-10.9 eGFR 69.9 Laboratory test finding 05/19/2013 A/G Ratio 1.8 [...] Protein 6.9 g/dL 6.3-8.2 eGFR 77.1 mi/minper1.73 39 Lipid Panel 05/19/2013 Chol/HDL Ratio 4.4 ratio Cholesterol 160.0 mg/dL 50.0-199.0 HDL 36.0 mg/dL 29.0-67.0 LDL, Calculated 103.2 mg/dL 20.0-129.0 Triglycerides 104.0 mg/dL 30.0-249.0 vLDL 20.8 ng/dL Laboratory test finding 10/31/2012 % Baso. 0.7 % 0.0-2.0 % Eos. 1.4 % 0.0-4.0 % Lymph 26 % 20-44 % [place] 7.8 % 2.0-10.0 % [place] 64 % 50-70 A/G Ratio 1.7 ratio 1.6-2.2 Absolute Baso. 0.0 K/ul 0.0-0.3 Absolute Eos. 0.1 K/ul 0.0-0.5 Absolute Lymph. 1.8 K/ul 0.8-4.8 Absolute [place]. 0.5 K/ul 0.1-1.0 Absolute [place]. 4.48 K/ul [...] WBC 7.0 K/ul 4.1-10.9 eGFR 80.8 mi/minper1.73 40 Lipid Panel 10/31/2012 Chol/HDL Ratio 5.8 ratio Cholesterol 196.0 mg/dL 50.0-199.0 HDL 34.0 mg/dL 29.0-67.0 LDL, Calculated 135.6 mg/dL High 20.0-129.0 Triglycerides 132.0 mg/dL 30.0-249.0 vLDL 26.4 ng/dL Laboratory test finding 08/25/2011 Absolute Basophils 0.045 [...] 4.1-10.9 Lipid Panel 08/25/2011 Chol/HDL Ratio 5.6 41 Cholesterol 224 mg/dL High 50-199 HDL Cholesterol 40 mg/dL 29-67 LDL 155 mg/dL High 20-129 Triglycerides 144 mg/dL 30-249 VLDL Cholesterol 29 mg/dL Laboratory test finding 09/17/2010 Spermatocele See Note 42 Laboratory test finding 08/25/2010 Absolute Basophils 0.056 [...] 4.1-10.9 Lipid Panel 08/25/2010 Chol/HDL Ratio 5.5 43 Cholesterol 221 mg/dL High 50-199 HDL Cholesterol 40 mg/dL 29-67 LDL 144 mg/dL High 20-129 Triglycerides 185 mg/dL 30-249 VLDL Cholesterol 37 mg/dL Laboratory test finding 06/16/2010 Tick Id See Note 44 Laboratory test finding 02/04/2010 BUN 16 mg/dL 5-23 45 Creatinine 1.0 mg/dL 0.5-1.4 46 Lipid Panel 08/12/2009 Chol/HDL Ratio 5.2 47, 48 Cholesterol 196 mg/dL 50-199 47 HDL Cholesterol 37 mg/dL 29-67 47 LDL 132 mg/dL High 20-129 47 Triglycerides 137 mg/dL 30-249 47 VLDL Cholesterol 27 mg/dL 47 Laboratory test finding 08/12/2009 Absolute Basophils 0.056 K/ul 0.0-0.3 47 Absolute Eosinophils 0.076 K/ul 0.0-0.5 47 Absolute Lymphocytes 1.55 K/ul 0.8-4.8 47 Absolute Monocytes 0.429 K/ul 0.1-1.0 47 Absolute Neutrophils 3.12 K/ul 2.05-7.63 47 Anion Gap 14 mmol/L 10-20 47 BUN 15 mg/dL 9-21 47 BUN/CR Ratio 16.5 Ratio 12-20 47 Basophil 1.1 % 0-2 47 Calcium 9.7 mg/dL 8.7-10.5 47 Carbon Dioxide 28 mmol/L 22-30 47 Chloride 104 mmol/L 98-107 47 Creatinine, Serum 0.9 mg/dL 0.8-1.5 47 Eosinophil 1.5 % 0-4 47 Glucose 112 mg/dL High 75-110 47 Hematocrit 44.4 % 37.0-51.0 47 Hemoglobin 15.6 GM/dl 12.0-16.0 47 Lymphocytes 29.6 % 20-44 47 MCH 30.7 pg 26.0-32.0 47 MCHC 35.1 g/dL 31.0-36.0 47 MCV 88 FL 80-97 47 Monocytes 8.2 % 2-10.0 47 Neutrophils 59.7 % 50-70 47 Platelet Count 264 K/ul 140-440 47 Potassium 4.1 mmol/L 3.6-5.0 47 RBC 5.08 M/ul 4.2-6.3 47 RDW 11.2 % Low 11.5-14.5 47 Sodium 142 mmol/L 137-145 47 WBC 5.2 K/ul 4.1-10.9 47 Laboratory test finding 07/06/2008 Anion Gap 10 mEq/L 8-16 BUN 14 mg/dL 5-23 BUN/Creat 14.0 Calcium 9.5 mg/dL 8.5-10.1 Carbon Dioxide 31 mEq/L 21-32 Chloride 104 mEq/L 98-107 Creatinine 1.0 mg/dL 0.5-1.4 Glom Filtration Rate, Estimate >60 mL/min >60 Glucose 104 mg/dL 76-115 If >60 mL/min >60 49 Potassium 4.1 mEq/L 3.5-5.1 Sodium 141 mEq/L [...] 11.6 % 11.5-14.5 WBC 5.8 K/ul 4.1-10.9 Laboratory test finding 07/05/2007 Absolute Basophils 0.02 K/ul 0.0-0.3 50 Absolute Eosinophils 0.08 K/ul 0.0-0.5 51 Absolute Lymphocytes 1.78 K/ul 0.8-4.8 52 Absolute Monocytes 0.38 K/ul 0.1-1.0 53 Absolute Neutrophils 3.14 K/ul 2.05-7.63 54 Anion Gap 17 mmol/L 10-20 BUN 15 [...] 142 mmol/L 137-145 WBC 5.4 K/ul 4.1-10.9 Lipid Panel 07/05/2007 Chol/HDL Ratio 4.7 55 Cholesterol 180 mg/dL 50-199 HDL Cholesterol 38 mg/dL 29-67 LDL 125 mg/dL 20-129 Triglycerides 85 mg/dL 30-249 VLDL Cholesterol 17 mg/dL Laboratory test finding 07/02/2006 Anion Gap 13 mmol/L 10-20 BUN 17 mg/dL 9-21 BUN/CR Ratio 15.9 Ratio 12-20 Calcium 9.6 mg/dL 8.7-10.5 Carbon Dioxide 28 mmol/L 22-30 Chloride 106 mmol/L 98-107 Creatinine, Serum 1.1 mg/dL 0.8-1.5 Glucose 97 mg/dL 75-110 Potassium 4.3 mmol/L 3.6-5.0 Sodium 143 mmol/L 137-145 Lipid Panel 07/02/2006 Chol/HDL Ratio 5.3 56 Cholesterol 156 mg/dL 50-199 HDL Cholesterol 29 mg/dL 29-67 LDL 105 mg/dL 20-129 Triglycerides 108 mg/dL 30-249 VLDL Cholesterol 22 mg/dL Lipid Panel 01/13/2006 Chol/HDL Ratio 5.3 57, 58 Cholesterol 203 mg/dL High 50-199 57 HDL Cholesterol 38 mg/dL 29-67 57 LDL 145 mg/dL High 20-129 57 Triglycerides 100 mg/dL 30-249 57 VLDL Cholesterol 20 mg/dL 57 Laboratory test finding 03/11/2005 Act Partial Thrombo Time 28.6 s 22.0- 36.0 Protime 03/11/2005 Inr 1.1 0.9-1.1 59 Protime 14.3 s 12.1-14.6 1 Default Test Order (No Match) 2 Per NCEP ATP III Guidelines: Results lower than 40 mg/dL are suggestive of increased risk for coronary artery disease. Results > or=to 60 mg/dL are considered a negative risk factor. 3 Per NCEP ATP III Guidelines: Normal Population <130 Patients with medical conditions: CHD/DM Optimal: <100 Borderline high: 130-159 High: 160-189 Very high: >189 4 Updated reference range on new analyzer 5 Updated reference range on new analyzer 6 Concerning GFR Guidelines: Normal function or mild [...] drugs that are excreted by the kidneys. 7 Concerning GFR Guidelines for Americans: Normal function or mild renal disease, if clinically at risk: >/=60 mL/min Moderately decreased: 30-59 Severely decreased: 15-29 Renal failure: <15 8 Updated Reference Range 9 Updated reference range on new analyzer 10 Updated reference range on new analyzer 11 Concerning GFR Guidelines: Normal function or mild [...] drugs that are excreted by the kidneys. 12 Concerning GFR Guidelines for Americans: Normal function or mild renal disease, if clinically at risk: >/=60 mL/min Moderately decreased: 30-59 Severely decreased: 15-29 Renal failure: <15 13 Updated reference range on new analyzer 14 Per NCEP ATP III Guidelines: Results lower than 40 mg/dL are suggestive of increased risk for coronary artery disease. Results > or=to 60 mg/dL are considered a negative risk factor. 15 Per NCEP ATP III Guidelines: Normal Population <130 Patients with medical conditions: CHD/DM Optimal: <100 Borderline high: 130-159 High: 160-189 Very high: >189 16 Per NCEP ATP III Guidelines: Results lower than 40 mg/dL are suggestive of increased risk for coronary artery disease. Results > or=to 60 mg/dL are considered a negative risk factor. 17 Per NCEP ATP III Guidelines: Normal Population <130 Patients with medical conditions: CHD/DM Optimal: <100 Borderline high: 130-159 High: 160-189 Very high: >189 18 Updated reference range on new analyzer 19 Updated reference range on new analyzer 20 Concerning GFR Guidelines: Normal function or mild [...] drugs that are excreted by the kidneys. 21 Concerning GFR Guidelines for Americans: Normal function or mild renal disease, if clinically at risk: >/=60 mL/min Moderately decreased: 30-59 Severely decreased: 15-29 Renal failure: <15 22 Updated reference range on new analyzer 23 Concerning GFR Guidelines: Normal function or mild [...] drugs that are excreted by the kidneys. 24 Concerning GFR Guidelines for Americans: Normal function or mild renal disease, if clinically at risk: >/=60 mL/min Moderately decreased: 30-59 Severely decreased: 15-29 Renal failure: <15 25 Per NCEP ATP III Guidelines: Results lower than 40 mg/dL are suggestive of increased risk for coronary artery disease. Results > or=to 60 mg/dL are considered a negative risk factor. 26 Per NCEP ATP III Guidelines: Normal Population <130 Patients with medical conditions: CHD/DM Optimal: <100 Borderline high: 130-159 High: 160-189 Very high: >189 27 Per NCEP ATP III Guidelines: Results lower than 40 mg/dL are suggestive of increased risk for coronary artery disease. Results > or=to 60 mg/dL are considered a negative risk factor. 28 Per NCEP ATP III Guidelines: Normal Population <130 Patients with medical conditions: CHD/DM Optimal: <100 Borderline high: 130-159 High: 160-189 Very high: >189 29 Concerning GFR Guidelines: Normal function or mild [...] drugs that are excreted by the kidneys. 30 Concerning GFR Guidelines for Americans: Normal function or mild renal disease, if clinically at risk: >/=60 mL/min Moderately decreased: 30-59 Severely decreased: 15-29 Renal failure: <15 31 Concerning GFR Guidelines: Normal function or mild [...] drugs that are excreted by the kidneys. 32 Concerning GFR Guidelines for Americans: Normal function or mild renal disease, if clinically at risk: >/=60 mL/min Moderately decreased: 30-59 Severely decreased: 15-29 Renal failure: <15 33 Per NCEP ATP III Guidelines: Results lower than 40 mg/dL are suggestive of increased risk for coronary artery disease. Results > or=to 60 mg/dL are considered a negative risk factor. 34 Per NCEP ATP III Guidelines: Normal Population <130 Patients with medical conditions: CHD/DM Optimal: <100 Borderline high: 130-159 High: 160-189 Very high: >189 35 Per NCEP ATP III Guidelines: Results lower than 40 mg/dL are suggestive of increased risk for coronary artery disease. Results > or=to 60 mg/dL are considered a negative risk factor. 36 Per NCEP ATP III Guidelines: Normal Population <130 Patients with medical conditions: CHD/DM Optimal: <100 Borderline high: 130-159 High: 160-189 Very high: >189 37 Concerning GFR Guidelines: Normal function or mild [...] drugs that are excreted by the kidneys. 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 Babesiosis and anaplasmosis are relatively uncommon in [facility] when compared to Lyme disease. However [...] may be required. Consult your physician or grain unloader machine for additional information. Testing performed by: [place] [facility]. [address] [place] [address] 18 QUERY: @EMR Pat ID: QUERY: @EMR Req #: 46 QUERY: @EMR Pat ID: QUERY: @EMR Req #: 47 FASTING 48 Normal Range: Male: <4.98 Female: <4.45 49 Note: Persistent reduction for 3 months or more in an eGFR <60 mL/min/1.73 m2 defines CKD. Patients with eGFR values >/=60 mL/min/1.73 m2 may also have CKD if evidence of persistent proteinuria is present. The original MDRD equation for estimated GFR is not valid for patients less than 18 years of age. Additional information may be found at www.kdoqi.org. 50 Result changed from * to 0.02 51 Result changed from * to 0.08 52 Result changed from * to 1.78 53 Result changed from * to 0.38 54 Result changed from * to 3.14 55 Normal Range: Male: <4.98 Female: <4.45 56 Normal Range: Male: <4.98 Female: <4.45 57 FASTING schedule fasting this month 58 Normal Range: Male: <4.98 Female: <4.45 59 THERAPEUTIC INR RANGE: 2.0 - 3.0 DVT, Pulmonary embolus, prophylaxis against venous thrombosis or systemic embolization in high risk patients. 2.5 - 3.5 Mechanical heart valves Procedures Date CPT Code Description Status Comment 02/12/2017 49286 Remove Impact Cerumen Completed Irrigation/Lavage 08/13/2016 12094 Brief Emotional/Behav Completed Assessment W/ Scoring Doc Per Standard Inst 05/02/2013 Colonoscopy Completed Document: 05/02/13 - Colonoscopy Encounters Type Date Location Provider CPT E/M Dx Office Visit 07/21/2017 8:00a [facility] [place] [address] Z00.00 I10 E11.9 E78.2 M17.9 Z85.46 N50.9 M17.0 Z68.26 Office Visit 05/25/2017 9:15[place] [address] I10 E11.9 R05 Z68.27 Office Visit 05/01/2017 10:30a [facility] [place] [address] I10 E11.9 E78.2 Office Visit 02/12/2017 10:15[place] [address] E11.9 I10 E78.2 M17.9 Z85.46 N50.9 J06.9 H61.23 Office Visit 08/13/2016 10:30a [place] G0439 Z00.01 E11.9 I10 E78.2 M17.9 Z85.46 N50.9 Z23 Office Visit 02/05/2016 8:00a [facility] [place] [address] E11.9 I10 E78.2 M17.9 Z85.46 N50.9 Office Visit 08/01/2015 8:00a [facility] [place] [address] E11.9 I10 E78.2 M17.9 Z85.46 N50.9 Office Visit 01/18/2015 8:30a [facility] [place] [address] E11.9 I10 E78.2 M17.9 Z85.46 H61.21 N50.9 Office Visit 09/12/2014 9:45a [facility] [place] [address] 250.00 401.1 272.2 715.96 V10.46 Office Visit 06/05/2014 9:00a [facility] [place] [address] 250.00 372.72 401.1 272.2 715.96 V10.46 366.10 Plan of Care Future Appointment(s):01/28/2018 8:00 am - Mir Patel DO at [facility]01/21/2018 7:30 am - Schedule, Laboratory at [facility]11/04/2017 - Mir Patel DOR25.1 Tremor, unspecifiedFollow up:Follow up as needed.Z68.27 Body mass index (BMI) 27.0-27.9, adult
[2017-11-14 21:09] VITALS: BP 152/74
--- NOTE | 2017-11-14 21:22 | UC ---
Cardiac HPI - HPI Summary HPI Summary: Pt c/o sudden onset left side rib pain after falling out of bed last and hitting side of nightside table. NO wc/o of left lateral rib and upper back pain. Worse with deep breath or cough - History of Current Complaint Chief Complaint: UCTrauma Stated Complaint: RIB INJURY Time Seen by Provider: 11/14/17 21:04 Hx Obtained From: Patient Onset/Duration: Gradual Onset, Lasting Hours, Still Present Initial Severity: Mild Current Severity: Mild Pain Intensity: 3 Chest Pain Location: Left Lateral Aggravating Factor(s): Deep Breaths Alleviating Factor(s): Rest - Risk Factors Pulmonary Embolism Risk Factors: Negative Cardiac Risk Factors: Negative Atrial Fibrillation: Negative TAD Risk Factors: Negative - Allergy/Home Medications Allergies/Adverse Reactions: Allergies Allergy/AdvReac Type Severity Reaction Status Date / Time Penicillins Allergy Rash Verified 06/20/17 14:39 PMH/Surg Hx/FS Hx/Imm Hx Previously Healthy: Yes - Surgical History Surgical History: Yes Surgery Procedure, Year, and Place: 1987- right knee surgery. 2005- prostate cancer surgery. hydrocele - Family History Known Family History: Positive: Cardiac Disease - Social History Occupation: Retired Lives: With Family Alcohol Use: Rare Substance Use Type: None Smoking Status (MU): Former Smoker Have You Smoked in the Last Year: No When Did the Patient Quit Smoking/Using Tobacco: 1967 - Immunization History Most Recent Influenza Vaccination: Current for Review of Systems Constitutional: Negative Skin: Negative Eyes: Negative ENT: Negative Respiratory: Negative Cardiovascular: Negative Gastrointestinal: Negative Genitourinary: Negative Motor: Negative Neurovascular: Negative Musculoskeletal: Arthralgia - left lateral ribs Neurological: Negative Psychological: Negative Is Patient Immunocompromised?: No All Other Systems Reviewed And Are Negative: Yes Physical Exam Triage Information Reviewed: Yes Appearance: Well-Appearing Vital Signs: Initial Vital Signs Temp 97.8 F 11/14/17 21:03 Pulse 70 11/14/17 21:03 Resp 17 11/14/17 21:03 BP 152/74 11/14/17 21:03 Pulse Ox 98 11/14/17 21:03 Vital Signs Reviewed: Yes Eye Exam: Normal ENT Exam: Normal Dental Exam: Normal Neck exam: Normal Respiratory: Positive: No respiratory distress Cardiovascular Exam: Normal Musculoskeletal: Positive: Other: - tenderness, left lateral ribs 4-7 that radiates to back Neurological Exam: Normal Psychological Exam: Normal Skin Exam: Normal - Clinical Impression Provider Diagnoses: rib contusion Discharge - Sign-Out/Discharge Documenting (check all that apply): Patient Departure All imaging exams completed and their final reports reviewed: No - Discharge Plan Condition: Stable Disposition: HOME Patient Education Materials: Rib Contusion (ED) Referrals: Mir Patel DO [Primary Care Provider] - If Needed - Billing Disposition and Condition Condition: STABLE Disposition: Home
--- NOTE | 2017-11-15 08:19 | RAD ---
INDICATION: Left lateral flank pain after a fall from bed COMPARISON: None. TECHNIQUE: 3 views of the left ribs were obtained. FINDINGS: No fracture or significant focal osseous abnormality is seen. No pneumothorax is apparent. Limited views demonstrate grossly clear lungs. IMPRESSION: No radiographically apparent displaced rib fracture or pneumothorax. If the patient's symptoms persist, follow-up imaging is recommended. R0
--- NOTE | 2017-11-15 13:21 | UC ---
- EKG/XRAY/CT Xray Comments: diagnosis correct (ribs) Discharge - Sign-Out/Discharge Documenting (check all that apply): Post-Discharge Follow Up All imaging exams completed and their final reports reviewed: Yes - Discharge Plan Condition: Stable Disposition: HOME Patient Education Materials: Rib Contusion (ED) Referrals: Mir Patel DO [Primary Care Provider] - If Needed - Billing Disposition and Condition Condition: STABLE Disposition: Home
== END 2017-11-14 21:33 | disposition home or self-care (01) ==
LOC: UCCORT 20:44
DX: S20.212A Contusion of left front wall of thorax, initial encounter (principal); W06.XXXA Fall from bed, initial encounter; Y93.89 Activity, other specified; Y92.003 Bedroom of unspecified non-institutional (private) residence as the place of occurrence of the external cause; Z88.0 Allergy status to penicillin
CPT/HCPCS: 99211; G0463

== ENCOUNTER 2018-10-26 18:09 | Emergency (ER) | payer MEDICARE, BC ==
[2018-10-26 18:27] VITALS: BP 138/80
--- NOTE | 2018-10-26 19:28 | UC ---
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 decreased appetite persistes today - hasnt eaten since yeterday morning. -has had water a few hrs ago -no jaundice. pain genreal mid belly + increased flatulence > burping -urine darker today -no salazar colored stool -had nml BM this morning. 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 -denies recent spider bites or new meds. no trauma. no known gall stones - History of Current Complaint Chief Complaint: UCAbdominalPain Stated Complaint: STOMACH PAINS,FEVER,ILL FEELING Time Seen by Provider: 10/26/18 18:56 Pain Intensity: 4 - Allergies/Home Medications Allergies/Adverse Reactions: Allergies Allergy/AdvReac Type Severity Reaction Status Date / Time Penicillins Allergy Rash Verified 10/26/18 18:27 PMH/Surg Hx/FS Hx/Imm Hx Previously Healthy: Yes Cardiovascular History: Hypertension - Surgical History Surgical History: Yes Surgery Procedure, Year, and Place: 1987- right knee surgery. 2005- prostate cancer surgery. hydrocele - Family History Known Family History: Positive: Cardiac Disease - Social History Lives: With Family Alcohol Use: Rare Substance Use Type: None Smoking Status (MU): Former Smoker Have You Smoked in the Last Year: No When Did the Patient Quit Smoking/Using Tobacco: 1966 - Immunization History Most Recent Influenza Vaccination: Current for season Review of Systems All Other Systems Reviewed And Are Negative: Yes Constitutional: Positive: Fever, Fatigue Skin: Positive: Negative, Other - no icterus/jaundice. Negative: Rash Eyes: Positive: Negative. Negative: Drainage ENT: Positive: Negative. Negative: Sore Throat, Ear Ache, Nasal Discharge Respiratory: Positive: Negative. Negative: Shortness Of Breath, Cough Cardiovascular: Positive: Negative. Negative: Palpitations, Chest Pain Gastrointestinal: Positive: Abdominal Pain, Nausea. Negative: Vomiting, Diarrhea Genitourinary: Positive: Negative, Other - dark urine. no hematuria. Negative: Dysuria Motor: Positive: Weakness - geenarlizd tired Neurovascular: Positive: Negative Musculoskeletal: Positive: Negative. Negative: Arthralgia Neurological: Positive: Negative Psychological: Positive: Negative Is Patient Immunocompromised?: No Physical Exam Appearance: Well-Appearing, No Pain Distress, Well-Nourished - very pleasant. sitting w/ legs crossed. appears comfortable. warren skin Vital Signs: Initial Vital Signs Temp 99 F 10/26/18 18:22 Pulse 104 10/26/18 18:22 Resp 17 10/26/18 18:22 BP 138/80 10/26/18 18:22 Pulse Ox 97 10/26/18 18:22 Vital Signs Reviewed: Yes Eye Exam: Normal Eyes: Positive: Conjunctiva Clear, Other: - no icterus ENT Exam: Normal ENT: Positive: Pharynx normal, TMs normal, Uvula midline. Negative: Sinus tenderness Dental Exam: Normal Neck exam: Normal Neck: Positive: Supple, Nontender, No Lymphadenopathy Respiratory Exam: Normal Respiratory: Positive: Chest non-tender, Lungs clear, Normal breath sounds, No respiratory distress, No accessory muscle use. Negative: Crackles, Rhonchi, Stridor, Wheezing Cardiovascular Exam: Normal Cardiovascular: Positive: RRR, No Murmur Abdomen Description: Positive: Soft, Other: - tender at mid epigastrum, central mid abd and suprapubic area/. Negative: CVA Tenderness (R), CVA Tenderness (L) , Distended, Guarding, Hepatomegaly, McBurney's Point Tenderness, Peritoneal Signs, Pulsatile Mass, Splenomegaly Bowel Sounds: Positive: Present - x 4 nml Neurological Exam: Normal Psychological Exam: Normal Skin Exam: Normal Skin: Negative: Rashes, Other - no jaundice Abd Pain Male Course/Dx - Course Course Of Treatment: -amylase, lipase, CBC w/ diff, CMP -UA: + 1 bilirubin. no nitrites/LE, tr lysed blood. + [address] A/P w/o contrast - eval for pancreatitis. "FINDINGS: Lungs: The visualized portions of the lung bases are normal. Liver: Normal. No mass. Gallbladder and bile ducts: Normal. No calcified stones. No ductal dilation. Pancreas: Mild peripancreatic and intrapancreatic stranding involving the head and body without involvement of the tail. No main ductal dilation, focal lesions, or peripancreatic encapsulated fluid collections. Spleen: Normal. No splenomegaly. Adrenals: Normal. No mass. Kidneys and ureters : No renal calculi or pelvocaliectasis. Stomach and bowel: Incompletely distended grossly normal stomach. Normal caliber small bowel. Distal colonic diverticula without adjacent inflammatory changes or associated wall thickening. Appendix: Normal caliber appendix without wall thickening or adjacent inflammation. Intraperitoneal space: No ascites, pneumoperitoneum, or hemorrhage. Vasculature: There is mild atherosclerotic calcification of the coronary arteries. The aorta demonstrates moderate atherosclerotic calcification. Lymph nodes: Munira. No enlarged lymph nodes. Bladder: Thin- walled bladder with no focal nodularity, perivesicular stranding, or calcifications. Reproductive: Surgically absent prostate and seminal vesicles. Partially visualized right hydrocele. Bones/joints: The spine demonstrates moderate degenerative changes at multiple levels. Moderate bilateral hip primary osteoarthritis. No acute fractures. No suspicious bone lesions. Soft tissues: Fat-containing indirect right inguinal hernia. No stranding. IMPRESSION : 1. Acute interstitial edematous pancreatitis. Modified CT severity index = 2. 2. Distal colonic diverticulosis. 3. Right inguinal hernia. No strangulation. 4. Right scrotal hydrocele." -s/w Dr Mark [facility] which is wheer pt pefers to go. Directed to go directly to ER,. undrestands that labs that were iordered will not be resulted untuikl at least tiomorrow. needs further evaluuationa nd probably admission [facility] -he prefers to go to [facility] his primarcy care goes through there and proximity. -will send copy of [facility] from [facility]. Dr Mark states that they will need to rpt CT w/ IV contrast. -he linette being establuished w/ GI dr other than routine colonoscopies. -he understands the importance of further evaluation and admission and severe results - Differential Dx/Clinical Impression Differential Diagnosis/HQI/PQRI: Abdominal Aortic Aneurysm, Bowel Obstruction, Constipation, Diverticulitis, Gall Bladder Disease, Hepatitis, Ischemic Bowel, Pancreatitis, Renal Colic, Ureteral Stone, Urinary Tract Infection Provider Diagnosis: Pancreatitis Discharge ED - Sign-Out/Discharge Documenting (check all that apply): Patient Departure All imaging exams completed and their final reports reviewed: Yes - Discharge Plan Condition: Good Disposition: TRANS HIGHER LVL OF CARE FAC Referrals: Mir Patel DO [Primary Care Provider] - Additional Instructions: Please go directly to the emergency room for further evaluation. Do not eat or drink anything. - Billing Disposition and Condition Condition: GOOD Disposition: Trans Higher Lvl of Care Fac
[2018-10-27 11:49] LABS: ABS Eosinophils 0.2 10^3/ul (0-0.6); ABS Lymphocytes 1.4 10^3/ul (1.0-4.8); ABS Neutrophils 8.1 10^3/ul (1.5-7.7); Eosinophil % 2.2 %; Hematocrit 46 % (42-52); Hemoglobin 15.6 g/dL (14.0-18.0); Lymphocyte % 13.1 %; Mean Corpuscular HGB Conc 34 g/dL (31-36); Mean Corpuscular Hemoglobin 32 pg (27-31); Mean Corpuscular Volume 94 fL (80-94); Mean Platelet Volume 10.2 fL (7.4-10.4); Nucleated Red Blood Cells % 0.1; Platelet Count 245 10^3/uL (150-450); Red Blood Count 4.89 10^6 /uL (4.18-5.48); Red Cell Distribution Width 14 % (10-15); White Blood Count 10.7 10^3/uL (3.5-10.8)
[2018-10-27 11:53] LABS: Albumin 4.7 g/dL (3.2-5.2); Potassium 4.5 mmol/L (3.5-5.0); Total Bilirubin 0.9 mg/dL (0.2-1.0)
[2018-10-27 12:00] LABS: Albumin/Globulin Ratio 2.2 (1-3); BUN/Creatinine Ratio 16.5 (8-20); EGFR African American 79.4 (>60); EGFR Non-African American 65.6 (>60); Globulin 2.1 g/dL (2-4); Total Protein 6.8 g/dL (6.4-8.9)
--- NOTE | 2018-10-28 07:18 | ED ---
Progress - Progress Note Progress Note: Please call patient. Labs positive for pancreatitis. Needs to go to the hospital. Course/Dx - Diagnoses Provider Diagnoses: Pancreatitis Discharge ED - Sign-Out/Discharge Documenting (check all that apply): Patient Departure All imaging exams completed and their final reports reviewed: Yes - Discharge Plan Condition: Good Disposition: TRANS HIGHER LVL OF CARE FAC Referrals: Mir Patel DO [Primary Care Provider] - Additional Instructions: Please go directly to the emergency room for further evaluation. Do not eat or drink anything. - Billing Disposition and Condition Condition: GOOD Disposition: Trans Higher Lvl of Care Fac
== END 2018-10-26 21:16 | disposition short-term general hospital (02) ==
LOC: UCCORT 18:09
DX: K85.90 Acute pancreatitis without necrosis or infection, unspecified (principal); K57.30 Diverticulosis of large intestine without perforation or abscess without bleeding; K40.90 Unilateral inguinal hernia, without obstruction or gangrene, not specified as recurrent; N43.3 Hydrocele, unspecified; R50.9 Fever, unspecified; R53.83 Other fatigue; R11.0 Nausea; Z88.0 Allergy status to penicillin; Z87.891 Personal history of nicotine dependence
CPT/HCPCS: 36415; 74176; 80053; 81003; 82150; 83690; 85025; 99212; G0463

== ENCOUNTER 2019-02-18 10:02 | Emergency (ER) | payer MEDICARE, BC ==
--- OUTSIDE RECORDS SUMMARY | 2019-02-18 10:14 | XMS REPORT | Continuity of Care Document ---
:1940 External Reference #:[id number] Author Name Mir Patel DO Address [address] [place] [address] Problems Active Problems Provider Date Benign essential hypertension Mir Patel DO Onset: 05/25/2013 Mixed hyperlipidemia Michael Goss MD Onset: 07/05/2007 Acute pancreatitis Michael Goss MD Onset: 12/18/2005 Elevated blood-pressure reading without Michael Goss MD Onset: 03/10/2005 diagnosis of hypertension History of malignant neoplasm of prostate Michael Goss MD Onset: 2004 Pure hypercholesterolemia Onset: 06/04/2014 Type 2 diabetes mellitus Mir Patel DO Onset: 06/05/2014 Social History Type Date Description Comments Sex Unknown ETOH Use Rarely consumes alcohol Tobacco Use Start: Unknown End: Unknown Patient is a former smoker Recreational Drug Use Denies Drug Use Smoking Status Reviewed: 08/01/18 Patient is a former smoker Allergies, Adverse Reactions, Alerts Active Allergies Reaction Severity Comments Date Amoxicillin 12/17/2004 Penicillin 02/12/2017 Medications Active Medications SIG Qnty Indications Ordering Provider Date Lisinopril take 1 tablet by 90tabs I10 Mir Patel, 05/01/2017 10mg Tablets mouth every DO morning Pravastatin Sodium take 1 tablet 90tabs Mir Patel, 02/17/2013 20mg once daily DO Tablets Aspirin Adult Low 1 po qd Unknown Strength 81mg Tablets DR Jerry CPT Code Status Date Vaccine Lot # [id number] Given 12/12/2017 Fluzone Highdose Age 65 And Over Preservative & Antibiotic Free 11090 Given 12/21/2016 Influenza Vac, Quadrivalent, Split, 0.5mL Dosage, [place] Use 43867 Given 08/13/2016 Prevnar 13 Pneumococal Conjugate Vaccine [id number] Given 11/23/2014 Fluzone Highdose Age 65 And Over Preservative & Antibiotic Free 20885 Given 10/31/2012 Afluria Or Fluvirin Flu Vac Intramuscular 43551 Given 07/05/2008 Pneumococcal 23 Immunization Adult Or Immunosuppressed Patient 70043 Given 12/17/2004 Afluria Or Fluvirin Flu Vac Intramuscular 43799 Given 09/08/2000 Immunization Td 7 Yrs Or Older 27058 Refused 11/04/2017 Fluzone Highdose Age 65 And Over Preservative & Antibiotic Free Vital Signs Date Vital Result Comment 02/06/2019 8:02am Weight 183.00 lb Heart Rate 70 /min BP Systolic 152 mmHg BP Diastolic 84 mmHg BP Systolic Recheck 150 mmHg BP Diastolic Recheck 84 mmHg Respiratory Rate 18 /min Height 69.5 inches 5'9.50" BMI (Body Mass Index) 26.6 kg/m2 10/27/2018 4:19pm Weight 186.00 lb Heart Rate 72 /min BP Systolic 144 mmHg BP Diastolic 82 mmHg Respiratory Rate 18 /min Height 69.5 inches 5'9.50" BMI (Body Mass Index) 27.1 kg/m2 Results Test Acquired Date Facility Test Result H/L Range Note CBC with Auto Diff-fcmg 01/31/2019 [facility] 5.2 K/uL 4.1-11.0 1 RBC 4.72 M/uL 4.60-6.10 2 Hemoglobin 14.7 gm/dL 13.5-18.0 3 Hematocrit 44.5 % 41.0-53.0 4 MCV 94.2 fL 80.0-95.0 5 MCH 31.0 pg 27.0-32.0 6 MCHC 33.0 g/dL 32.0-36.0 7 RDW 13.6 % 10.5-14.5 8 PLT Count 204 K/ul 150-400 9 MPV 9.7 FL 7.1-10.7 Neutrophil 59.1 % 35.0-75.0 10 Lymphocyte 26.5 % 16.0-52.0 11 Monocyte 8.9 % High 0.0-8.0 12 Eosinophil 4.4 % 0.0-5.0 Basophil 1.1 % 0.0-4.0 Abs Neutrophils 3.1 K/uL 1.8-7.7 13 Abs Lymphocytes 1.4 K/uL 1.2-4.8 14 Abs Monocytes 0.5 K/uL 0.0-0.8 15 Abs Eosinophils 0.2 K/uL 0.0-0.5 16 Abs Basophils 0.1 K/uL 0.0-0.2 17 Basic (BMP) 01/31/2019 [facility] Sodium 143 mmol/L 135-146 18 Potassium 4.4 mmol/L 3.5-5.2 Chloride# 107 mmol/L 97-110 19 Carbon Dioxide 29 mmol/L 24-34 Glucose 141 mg/dL High 70-105 BUN 18 mg/dL 6-26 Creatinine 1.1 mg/dL 0.5-1.4 Calcium 9.6 mg/dL 8.5-10.5 20 Female Egfr 48 Low >60 21 Male Egfr 63 >60 22 Anion Gap 7 mmol/L 5-15 23 Laboratory test finding 01/31/2019 [facility] TSH 1.42 uIU/mL 0.35-4.94 Lipid Treatment 01/31/2019 [facility] Cholesterol 135 mg/dL 50-199 Triglycerides 95 mg/dL 30-200 HDL 33 mg/dL 29-71 24 Chol/ HDL Ratio 4.1 ratio 4.0-6.7 VLDL 19 mg/dL 2-29 LDL (Calc) 83 mg/dL 20-99 25 Alt 13 U/L 3-42 Ast 15 U/L 8-42 Hemoglobin A1c 01/31/2019 [facility] Hemoglobin A1c 7.0 % High 4.1-5.9 Estimated Average Glucose Calc 154 mg/dL High 71-140 CBS W/Automated 10/26/2018 [facility] White Blood 11.3 K/ uL High 3.4-10.5 26 Diff (315)- - Count Red Blood Count 4.91 M/uL Normal 4.20-5.80 Hemoglobin 16.0 gm/dL Normal 12.8-17.0 Hematocrit 46.7 % Normal 38.0-48.0 Mean Cell Volume 95.1 fl Normal 80.0-96.0 Mean Corpuscular HGB 32.6 pg Normal 27.0-33.0 Mean Corpuscular HGB Conc 34.3 g/dL Normal 31.7-36.0 Platelet Count 261 K/uL Normal 155-360 Red Cell Distri Width SD 45.8 fl Normal 36-51 Red Cell Distri Width %CV 13.0 % Normal 11.6-15.8 Mean Platelet Volume 11.0 fl High 6.6-10.6 Neut% 74.5 % High 33.0-73.0 Lymph % 13.5 % Low 20.0-42.0 [place] % 9.3 % Normal 0.0-10.0 Eo% 1.9 % Normal 0.0-6.6 Bas% 0.3 % Normal 0.0-1.1 Immature Grans 0.5 % Normal 0.0-5.0 NRBC % 0.0 /100WBC < 10/ 100 WBC Neut# 8.45 K/uL High 1.8-7.0 Lymph # 1.53 K/uL Normal 1.0-4.0 [place] # 1.05 K/uL High 0.0-0.8 Eos # 0.22 K/uL Normal 0.0-0.5 Baso # 0.03 K/uL Normal 0.0-0.1 Immature Grans Absolute 0.06 K/uL NRBC # 0.00 K/uL Urinalysis With 10/26/2018 [facility] Urine Color Yellow Yellow Microscopic (315)- - Urine Clarity Clear Clear Urine Glucose - Dipstick NEGATIVE mg/dL Negative Urine Bilirubin - Dipstick NEGATIVE Negative Urine Ketone NEGATIVE mg/dL Negative Urine Specific [place] 1.032 High 1.010-1.030 Urine Blood TRACE 0-2 Urine PH 5.5 Low 6.5-7.5 Urine Protein - Dipstick 30 mg/dL Abnormal Negative Urine Urobilinogen - Dipstick 2.0 mg/dL < 2.0 Urine Nitrite - Dipstick NEGATIVE Negative Urine Leuk Esterase NEGATIVE Negative Urine RBC 3-5 rbc/hpf 0-2 Urine WBC 0-2 wbc/hpf 0-5 Urine Calcium Oxalate Crystals MANY None Seen Urine Mucus MODERATE None Seen Source: URINE, CLEAN CAT <SEE NOTE> 27 CBC Auto Diff 10/26/2018 [facility] White Blood 10.7 10^3/uL Normal 3.5-10.8 28 Count Red Blood Count 4.89 10^6/uL Normal 4.18-5.48 Hemoglobin 15.6 g/dL Normal 14.0-18.0 Hematocrit 46 % Normal 42-52 Mean Corpuscular Volume 94 fL Normal 80-94 Mean Corpuscular Hemoglobin 32 pg High 27-31 Mean Corpuscular HGB Conc 34 g/dL Normal 31-36 Red Cell Distribution Width 14 % Normal 10-15 Platelet Count 245 10^3/uL Normal 150-450 Mean Platelet Volume 10.2 fL Normal 7.4-10.4 Abs Neutrophils 8.1 10^3/uL High 1.5-7.7 Abs Lymphocytes 1.4 10^3/uL Normal 1.0-4.8 Abs Monocytes 1.0 10^3/uL High 0-0.8 Abs Eosinophils 0.2 10^3/uL Normal 0-0.6 Abs Basophils 0.0 10^3/uL Normal 0-0.2 Abs Nucleated RBC 0.0 10^3/uL Granulocyte % 75.3 % Lymphocyte % 13.1 % Monocyte % 9.1 % Eosinophil % 2.2 % Basophil % 0.3 % Nucleated Red Blood Cells % 0.1 Comp Metabolic Panel 10/26/2018 [facility] Sodium 139 mmol/L Normal 135-145 Potassium 4.5 mmol/L Normal 3.5-5.0 Chloride 103 mmol/L Normal 101-111 Co2 Carbon Dioxide 29 mmol/L Normal 22-32 Anion Gap 7 mmol/L Normal 2-11 Calcium 10.0 mg/dL Normal 8.6-10.3 Albumin 4.7 g/dL Normal 3.2-5.2 Total Bilirubin 0.90 mg/dL Normal 0.2-1.0 Glucose 151 mg/dL High 70-100 Blood Urea Nitrogen 18 mg/dL Normal 6-24 Creatinine 1.09 mg/dL Normal 0.67-1.17 BUN/Creatinine Ratio 16.5 Normal 8-20 Total Protein 6.8 g/dL Normal 6.4-8.9 Globulin 2.1 g/dL Normal 2-4 Albumin/Globulin Ratio 2.2 Normal 1-3 Alkaline Phosphatase 68 U/L Normal 34-104 Alt 15 U/L Normal 7-52 Ast 15 U/L Normal 13-39 Egfr Non- 65.6 >60 Egfr 79.4 >60 29 Laboratory test 10/26/2018 [facility] Lipase 228 U/L High 11.0 -82.0 30 finding Amylase Pancreatic 505 U/L Abnormal 11 - 54 31 Poc Urinalysis 10/26/2018 [facility] Poc Glucose, Urine Negative Negative Poc Bilirubin, Urine 1+ Abnormal Negative Poc Ketone, Urine Negative Negative Poc Specific [place], Urine 1.020 Normal 1.010-1.030 Poc Blood, Urine Trace-lysed Abnormal Negative Poc pH, Urine 5.5 Normal 5-9 Poc Protein, Urine 1+ Abnormal Negative Poc Urobilinogen, Urine 1.0 Negative Poc Nitrite, Urine Negative Negative Poc Leukocytes, Urine Negative Negative Poc Color, Urine Other Poc Clarity, Urine Clear 32 1 Updated Reference Range 12/2018 2 Updated Reference Range 12/2018 3 Updated Reference Range 12/2018 4 Updated Reference Range 12/2018 5 Updated Reference Range 12/2018 6 Updated Reference Range 12/2018 7 Updated Reference range 12/2018 8 Updated Reference range 12/2018 9 Updated Reference Range 12/2018 10 Updated Reference Range 12/2018 11 Updated Reference Range 12/2018 12 Updated Reference Range 12/2018 13 Updated Reference Range 12/2018 14 Updated Reference Range 12/2018 15 Updated Reference Range 12/2018 16 Updated Reference Range 12/2018 17 Updated Reference Range 12/2018 18 Updated reference range on new analyzer 19 Updated reference range on new analyzer 20 Updated reference range 06-15-2018 21 Concerning GFR Guidelines for Americans: Normal function or mild renal disease, if clinically at risk: >/= 60 mL/min Moderately decreased: 30-59 Severely decreased: 15-29 Renal failure: <15 There is reduced accuracy above 60ml/min/1.73 m squared, but the numeric value may be clinically useful in the near 60 range 22 Concerning GFR Guidelines: Normal function or mild renal disease, if clinically at risk: >/= 60 mL/min Moderately decreased: 30-59 Severely decreased: 15-29 Renal failure: <15 There is reduced accuracy above 60ml/min/1.73 m squared, but the numeric value may be clinically useful in the near 60 range Glomerular Filtration Rate (GFR) is estimated based on the CKD-EPI equation, which assumes a steady state for [...] drugs that are excreted by the kidneys. 23 Updated Reference Range 24 Per NCEP ATP III Guidelines: Results lower than 40 mg/dL are suggestive of increased risk for coronary artery disease. Results > or = to 60 mg/dL are considered a negative risk factor. 25 Per NCEP ATP III Guidelines: Normal Population <130 Patients with medical conditions: CHD/DM Optimal: <100 Borderline high: 130-159 High: 160-189 Very high: >189 26 SENT OVER FROM [facility], MIGHT HAVE PANCREATITIS 27 URINE, CLEAN CATCH 28 [id number] 29 Because ethnic data is not always readily available, this report includes an eGFR for both -Americans and non- Americans. The National Kidney Disease Education Program (NKDEP) does not endorse the use of the MDRD equation for patients that are not between the ages of 18 and 70, are , have extremes of body size, muscle mass, or nutritional status, or are non- or non-. According to the National Kidney Foundation, irrespective of diagnosis, the stage of the disease is based on the level of kidney function: Stage Description GFR(mL/min/1.73 m(2)) 1 Kidney damage with normal or decreased GFR 90 2 Kidney damage with mild decrease in GFR 60-89 3 Moderate decrease in GFR 30-59 4 Severe decrease in GFR 15-29 5 Kidney failure <15 (or dialysis) 30 [id number] 31 Elevated total and/or pancreatic amylase in the presence of a low urine amylase may be explained by the presence of macroamylase when other measures of pancreatic inflammation (lipase) are normal. Test Performed by: [place] [address] Software Packaging Engineer: Haja Sapp M.D. Ph.D.; CLIA# [id number] 32 Churn Operator Margarine: [id number] Procedures Date Code Description Status 02/06/2019 79253 Remove Impact Cerumen Irrigation/Lavage Completed 08/23/2018 93246 ECHO Transthoracis 2D W Spectral Doppler Completed 05/02/2013 11335755 Colonoscopy Completed Medical Devices Description No Information Available Encounters Type Date Location Provider Dx Diagnosis Office Visit 10/27/2018 Mir Zhou DO K85.91 Acute pancreatitis 4:00p with uninfected necrosis, unspecified E66.3 Overweight Z68.27 Body mass index (BMI) 27.0-27.9, adult Assessments Date Code Description Provider 02/06/2019 I10 Essential (primary) hypertension Mir Patel, DO 02/06/2019 E11.9 Type 2 diabetes mellitus without complications PatelMir, DO 02/06/2019 E78.2 Mixed hyperlipidemia Mir Patel, DO 02/06/2019 M17.9 Osteoarthritis of knee, unspecified Mir Patel, DO 02/06/2019 Z85.46 Personal history of malignant neoplasm of Mir Patel, prostate 02/06/2019 N50.9 Disorder of male genital organs, unspecified Mir Patel , DO 02/06/2019 M17.0 Bilateral primary osteoarthritis of knee PatelMir, DO 02/06/2019 R25.1 Tremor, unspecified PatelMir, DO 02/06/2019 B02.9 Zoster without complications PatelMir, DO 02/06/2019 I34.0 Nonrheumatic mitral (valve) insufficiency PatelMir, DO 02/06/2019 R05 Cough PatelMir, DO 02/06/2019 K85.90 Acute pancreatitis without necrosis or Patel, Mir, infection, unspecified 02/06/2019 R12 Heartburn Mir Patel, DO 02/06/2019 H61.21 Impacted cerumen, RIGHT ear Mir Patel, DO 02/06/2019 Z68.26 Body mass index (BMI) 26.0-26.9, adult PatelMir, 01/31/2019 I10 Essential (primary) hypertension PatelMir, 01/31/2019 I10 Essential (primary) hypertension Schedule, Laboratory 01/31/2019 E11.9 Type 2 diabetes mellitus without complications PatelMir, DO 01/31/2019 E11.9 Type 2 diabetes mellitus without complications Schedule, Laboratory 01/31/2019 I10 Essential (primary) hypertension [facility] 01/31/2019 E11.9 Type 2 diabetes mellitus without complications [facility] 10/27/2018 K85.91 Acute pancreatitis with uninfected necrosis, PatelMir, DO unspecified 10/27/2018 E66.3 Overweight PatelMir, DO 10/27/2018 Z68.27 Body mass index (BMI) 27.0-27.9, adult PatelMir DO 08/23/2018 Z00.00 Encntr for general adult medical exam w/o [facility] abnormal findings 08/23/2018 I10 Essential (primary) hypertension [facility] 08/23/2018 E11.9 Type 2 diabetes mellitus without complications [facility] 08/23/2018 E78.2 Mixed hyperlipidemia [facility] 08/23/2018 R01.1 Cardiac murmur, unspecified [facility] Plan of Treatment Future Appointment(s):08/01/2019 7:50 am - Schedule, Laboratory at [facility]2019 9:15 am - Mir Patel, DO at [facility]02/06/2019 - Mir Patel, DOI10 Essential (primary) hypertensionNew Labs:CBC with Auto Diff-fcmg, Scheduled: Basic (BMP), Scheduled: 08/01/19TSH, Scheduled: 08/01/19Lipid Treatment, Scheduled: 08/01/19Comments:Today, the patient's BP is elevated at 152/84; on recheck it was at 150/84.1. Continue taking Kvpqueza30 mg po daily.2. Will benefit from maintaining a low sodium diet, cut down caffeine intake3. Monitor BP periodically at home and maintain a log of the same to bring along during the next visit for comparison.4. Stay hydrated.5. Maintain a normal cardiac exercise regimen. 6. We will continue to monitor.Follow up:Blood work in 6 months and will follow up with me a couple of days later for a Medicare Wellness Exam.E11.9 Type 2 diabetes mellitus without complicationsNew Labs: Hemoglobin A1c, Scheduled: 08/01/19Comments:The patient's labs were reviewed with the patient that the A1c was elevated at 7.0. I explained therisk factors of diabetes. I told him that this might be related to his pancreatitis. 1. The patient will benefit from maintaining a diabetic diet and a regular exercise regimen and cutting back on pasta, potatoes, and breads.2. May check the sugars on regular basis and maintain a log of it and bringit with him during the next visit.3.We will recheck in the future.4. We will continue to monitor.E78.2 Mixed hyperlipidemiaComments:Labs were reviewed in detail with the patient. LDL is well controlled at 83.1. Continue taking Pravastatin 20 mg po daily.2. The patient may benefit from decreasing the total amount of fat. Can chooselean meats, fat free or 1% fat milk, and low-fat dairy products such as yogurt and cheese.3. Would benefit from replacing unhealthy fats with healthy fats.4. Would benefit by eating foods which are high in fiber.5. We will recheck it in the future.6. We will continue to monitor.M17.9 Osteoarthritis of knee, ribypsawgakO56.46 Personal history of malignant neoplasm of qjveelokY76.9 Disorder of male genital organs, zaydoqtvoxqT74.0 Bilateral primary osteoarthritis of kneeR25.1 Tremor, rggmbmahgnyI59.9 Zoster without complicationsComments:Resolved at the present time. We will continue to monitor.I34.0 Nonrheumatic mitral (valve) insufficiencyComments:Echo showed trace mitral regurgitation. We will repeat an echocardiogram in the near future. We will continue to monitor.R05 CoughComments:Recommended the patient to treat this symptomatically. Will call or return if the symptoms persist or worsen. We will continue to monitor.K85.90 Acute pancreatitis without necrosis or infection, unspecifiedComments:1. Advised the patient to continue taking TUMS as needed.2. Will benefit from avoiding spicy, greasyfood, Juices containing citrus, sauce, chocolates, alcohol.3 Will benefit from eating small multiplemeals.4. Will benefit from limiting caffeine and carbonated beverages.5. Will benefit from not to eat three hours prior to sleeping.6. Will benefit from elevating the head and sleep during night.7. Maintain a healthy weight.R12 HeartburnComments:1. Advised the patient to continue taking TUMS as needed.2. Will benefit from avoiding spicy, greasyfood, Juices containing citrus, sauce, chocolates, alcohol.3 Will benefit from eating small multiplemeals.4. Will benefit from limiting caffeine and carbonated beverages.5. Will benefit from not to eat three hours prior to sleeping.6. Will benefit from elevating the head and sleep during night.7. Maintain a healthy weight.H61.21 Impacted cerumen, RIGHT earZ68.26 Body mass index (BMI) 26.0-26.9, adultComments:The patient's BMI is at 26.6. We will continue to monitor weight and BMI periodically. Functional Status Functional Condition Comment Date Status Hearing Aid in Both ears Active Mental Status Description No Information Available Referrals Description No Information Available
[2019-02-18 10:19] VITALS: BP 142/76
--- NOTE | 2019-02-18 11:04 | ED ---
Respiratory - HPI Summary HPI Summary: 71-year-old white male presents with complaints of sinus inflammation and frontal sinus pain 4 days associated with URI symptoms, in spite of using nettipot, denies yellow-green discharge, fever/chills. - History of Current Complaint Chief Complaint: UCRespiratory Stated Complaint: SINUS Time Seen by Provider: 02/18/19 10:42 Hx Obtained From: Patient Onset/Duration: Sudden Onset Initial Severity: Moderate Current Severity: Moderate Pain Intensity: 5 Character: Cough (Nonproductive) Sputum Amount: None Sputum Color: Clear Aggravating Factor(s): URI Alleviating Factor(s): Nothing - Allergy/Home Medications Allergies/Adverse Reactions: Allergies Allergy/AdvReac Type Severity Reaction Status Date / Time Penicillins Allergy Rash Verified 02/18/19 10:15 PMH/Surg Hx/FS Hx/Imm Hx Previously Healthy: Yes Cardiovascular History: Reports: Hx Hypertension - now controlled with medication Respiratory History: Denies: Hx Asthma - Cancer History Cancer Type, Location and Year: 2005- prostate - Surgical History Surgery Procedure, Year, and Place: 1987- right knee surgery. 2005- prostate cancer surgery. hydrocele Infectious Disease History: No Infectious Disease History: Reports: Hx Shingles Denies: Traveled Outside the [place] in Last 30 Days - Family History Known Family History: Positive: Cardiac Disease - Social History Alcohol Use: Rare Substance Use Type: Reports: None Smoking Status (MU): Former Smoker Have You Smoked in the Last Year: No Review of Systems Constitutional: Negative Eyes: Negative Positive: Nasal Discharge Cardiovascular: Negative Respiratory: Negative Gastrointestinal: Negative Genitourinary: Negative Musculoskeletal: Negative Skin: Negative Neurological: Negative Psychological: Normal All Other Systems Reviewed And Are Negative: Yes Physical Exam - Summary Physical Exam Summary: Appearance: Positive: No Pain Distress Skin: Positive: Warm Head/Face: Positive: Normal Head/Face Inspection Eyes: :Normal ENT: Normal ENT inspection Neck: Positive: Supple Respiratory/Lung Sounds: Positive: Clear to Auscultation. Negative: Rales, Rhonchi, Wheezes Cardiovascular: Positive: Normal, RRR, S1, S2 Abdomen : soft, NT/ND Musculoskeletal: Positive: Normal, Strength/ROM Intact Neurological: Positive: CN 2-12 grossly intact Triage Information Reviewed: Yes Vital Signs On Initial Exam: Initial Vitals Temp Pulse Resp BP Pulse Ox 36.6 C 72 16 142/76 99 02/18/19 10:15 02/18/19 10:15 02/18/19 10:15 02/18/19 10:15 02/18/19 10:15 Diagnostics - Vital Signs Vital Signs Temp Pulse Resp BP Pulse Ox 02/18/19 10:15 36.6 C 72 16 142/76 99 - Laboratory Lab Statement: Any lab studies that have been ordered have been reviewed, and results considered in the medical decision making process. Disposition - Diagnoses Provider Diagnoses: Acute suppurative inflammation of frontal sinus Discharge ED - Sign-Out/Discharge Documenting (check all that apply): Patient Departure All imaging exams completed and their final reports reviewed: No Studies - Discharge Plan Condition: Stable Disposition: HOME Prescriptions: Fluticasone NASAL SPRAY 50MCG* [Flonase NASAL SPRAY 50MCG*] 2 spray BOTH NARES DAILY 7 Days #1 btl Promethazine/Dextromethorphan [Promethazine-Dm Syrup] 5 ml PO Q6H PRN 5 Days #1 bottle PRN Reason: Cough Pseudoephedrine HCL ER TAB* [Sudafed 12 Hour*] 120 mg PO BID PRN 5 Days #10 tab.er PRN Reason: sinus pain Patient Education Materials: Rhinosinusitis (ED) Referrals: Mir Patel DO [Primary Care Provider] - - Billing Disposition and Condition Condition: STABLE Disposition: Home
== END 2019-02-18 11:03 | disposition home or self-care (01) ==
LOC: UCCORT 10:02
DX: J01.10 Acute frontal sinusitis, unspecified (principal); I10 Essential (primary) hypertension; Z88.0 Allergy status to penicillin; Z87.891 Personal history of nicotine dependence
CPT/HCPCS: 99212; G0463